=== PATIENT | female | born 1995 | race Caucasian/White ===

== ENCOUNTER → 2016-11-30 | Outpatient (CLI) | payer OTHER ==
[~2016-11-30] MED LIST: BCPILLS PO; CYCL10TA6 PO; GADAVIST IV PRN; MULT-506 PO; ONDA4TAB46 PO
--- NOTE | 2016-11-30 14:36 | DIAGNOSTIC IMAGING REPORT ---
MRI OF THE BRAIN COMBO ORBITS PROTOCOL CLINICAL HISTORY: Bilateral retinoblastoma. COMPARISON STUDY: CT of the brain dated 08/17/2015. TECHNIQUE: MRI of the brain was performed utilizing various T1 and T2-weighted sequences in the axial, sagittal, and coronal planes. Contrast-enhanced sequences were acquired following the administration of 19.2 cc of Gadavist. Additional high-resolution imaging was performed through the orbits both pre and postcontrast. FINDINGS: Brain parenchyma: There are scattered punctate foci of T2 signal abnormality within the subcortical and periventricular white matter. The brain parenchyma is otherwise normal in appearance. There is no hemorrhage or mass effect. There is no restricted diffusion to suggest acute ischemia. No enhancing mass lesion is identified on the postcontrast images. Scott-white matter differentiation is preserved. No extra-axial fluid collection is seen. The cerebellar tonsils are normal in configuration. The pineal gland is normal in appearance. Ventricles, sulci, and cisterns: Normal in configuration. Pituitary and sella: Unremarkable. Intracranial vasculature: Normal flow voids are maintained at the skull base. Orbits: The bony orbits are grossly intact. There is a bilobed/irregular nodule identified within the posterior right ocular globe. This is located at and just medial to the optic nerve insertion, and was shown to be calcified on the prior CT of the brain. The largest nodular component shows postcontrast enhancement and measures up to 4.4 mm. There is a plaque-like lesion also seen involving the posterior aspect of the left ocular globe, just medial to the optic nerve insertion. The largest nodular component measures up to 5.5 mm and demonstrates postcontrast enhancement. The optic nerves appear symmetric. The extraocular musculature is normal and symmetric. No lesion is seen within the intra or extraconal fat. Sinuses and mastoids: Clear. Calvarium: Unremarkable. Cervical cord: Partially visualized cervical spinal cord is normal in morphology and signal intensity. IMPRESSION: 1. There is no hemorrhage, mass effect, or evidence of acute ischemia. 2. There are lesions seen posteriorly within both ocular globes as detailed above. These demonstrate postcontrast enhancement, and the lesion of the right shows clear calcification on the recent CT of the brain. These are consistent with the reported clinical history of bilateral retinoblastoma. 3. The pineal gland is normal in appearance. 4. There are scattered punctate foci of T2 signal abnormality within the subcortical and periventricular white matter. This is of indeterminant clinical significance, if any. Electronically signed by: Martell Ghosh M.D. 11/30/2016 2:35 PM Dictated Date/Time: 11/30/2016 2:07 PM
== END | disposition home or self-care (01) ==
LOC: C.MRI 11:45
PROVIDERS: ATTEND Ophthalmology
DX: Z85.840 Personal history of malignant neoplasm of eye (principal); R90.82 White matter disease, unspecified

== ENCOUNTER → 2017-02-03 | Outpatient (CLI) | payer OTHER ==
[~2017-02-03] MED LIST changes: -GADAVIST IV PRN
--- NOTE | 2017-02-03 12:29 | DIAGNOSTIC IMAGING REPORT ---
MRV HEAD WITHOUT CONTRAST CLINICAL HISTORY: Headaches, papilledema. History of retinoblastoma. Left thigh pain. COMPARISON STUDY: MRI dated 11/30/2016 FINDINGS: The major dural venous sinuses appear patent. IMPRESSION: No evidence of dural venous sinus thrombosis. Electronically signed by: Jace Appiah M.D. 02/03/2017 12:28 PM Dictated Date/Time: 02/03/2017 12:26 PM
[2017-02-03 17:01] LABS: BASO % 0.4 %; BASO ABS # 0.07 K/uL (0-0.2); COMPLETE YES; EOS % 3.3 %; HEMATOCRIT 38.5 % (37-47); IG% 0.6 %; LYMPH % 21.4 %; MEAN CORPUSCULAR HEMOGLOBIN 23.8 pg (25-34); MEAN CORPUSCULAR HGB CONC 31.7 g/dl (32-36); MEAN PLATELET VOLUME 10.8 fL (7.4-10.4); NEUT % 66.3 %; PLATELET COUNT 343 K/uL (130-400); RED BLOOD COUNT 5.13 M/uL (4.2-5.4); WHITE BLOOD COUNT 17.73 K/uL (4.8-10.8)
[2017-02-03 17:14] LABS: ALT/SGPT 16 U/L (12-78); AST/SGOT 8 U/L (15-37); BLOOD UREA NITROGEN 16 mg/dl (7-18); BUN/CREATININE RATIO 21.3 (10-20); CALCIUM 9.2 mg/dl (8.5-10.1); CARBON DIOXIDE 26 mmol/L (21-32); CHLORIDE 108 mmol/L (98-107); CREATININE 0.75 mg/dl (0.60-1.20); GLUCOSE 99 mg/dl (70-99); POTASSIUM 3.9 mmol/L (3.5-5.1); SODIUM 141 mmol/L (136-145)
[2017-02-03 17:25] LABS: ALB/GLOB RATIO 0.9 (0.9-2); ALKALINE PHOSPHATASE 120 U/L (45-117)
[2017-02-03 18:18] LABS: LYME DISEASE AB IGM NEG (NEG)
[2017-02-03 18:20] LABS: LYME DISEASE AB IGG NEG (NEG)
== END | disposition home or self-care (01) ==
LOC: C.MRIBC 11:47
PROVIDERS: ATTEND Physician Assistant
DX: H47.10 Unspecified papilledema (principal); R51 Headache

== ENCOUNTER 2017-03-21 07:09 | Day surgery (SDC) | payer OTHER ==
[~2017-03-21] VITALS: Ht 167.6 cm; Wt 159.0 kg
[2017-03-21 08:09] VITALS: BP 124/68; PULSE 85; TEMP 36.9; O2SAT 98; Ht 167.6 cm; Wt 159.0 kg
[2017-03-21 09:49] VITALS: BP 117/67; PULSE 73; TEMP 36.7; O2SAT 99
--- NOTE | 2017-03-21 09:49 | Discharge Instructions ---
Discharge Instructions Procedure Procedure Date: Mar 21, 2017. Reason for visit: Papilledema W/Opening Pressure. Discharge Discharge Date: Mar 21, 2017. Discharge Diagnosis: papilledema Instructions Activity Recommendations: No limitations Return to School/Work: no limitations Recommended Home Diet: Resume Previous Diet Allergies Coded Allergies: No Known Allergies (Verified , 03/21/17) Alison Montes Recommendations: Call your doctor if: * Temperature above 101 degrees * Pain not relieved by pain medicine ordered * There is increased drainage or redness from any incision * You have any unanswered questions or concerns. Your Doctors Instructions noted above were prepared by provider Jace Appiah. Patient Signature Section: Patient Instructions Signature Page Bg [place] Patient (or Guardian) Signature/Date: I have read and understand the instructions given to me by my caregivers. Caregiver/RN/Doctor Signature/Date: The above-named patient and/or guardian has received patient instructions on this date. + Original Patient Signature Page (only) stays with chart. Please make copy for patient.
[2017-03-21 10:03] VITALS: BP 118/62; PULSE 75; O2SAT 99
--- NOTE | 2017-03-21 10:15 | DIAGNOSTIC IMAGING REPORT ---
FLUOROSCOPICALLY GUIDED DIAGNOSTIC LUMBAR PUNCTURE (UNSUCCESSFUL) CLINICAL HISTORY: Papilledema COMPARISON STUDY: No previous studies for comparison. FINDINGS: A timeout was performed. The risks of the procedure were explained the patient and informed consent was obtained. The patient was prepped and draped in sterile fashion. 2.8 minutes of fluoroscopic time was utilized. 33 fluoroscopic spot images were acquired. Initial attempt was performed at the L5-S1 level utilizing a 6 inch 20-gauge spinal needle. The needle was too short to reach the thecal sac. Additional attempts utilizing a 10 inch 20-gauge spinal needle were performed. Due to the patient's large body habitus, there was excessive needle bending, and the needle could not be advanced into the thecal sac. Attempts were also made to L4-5 and L3-4 levels. IMPRESSION: Despite multiple attempts, due to the patient's large body habitus, the attempted lumbar puncture was unsuccessful. Electronically signed by: Jace Appiah M.D. 03/21/2017 10:14 AM Dictated Date/Time: 03/21/2017 10:06 AM
== END 2017-03-21 10:09 | disposition home or self-care (01) ==
LOC: C.ACU 07:09
PROVIDERS: ATTEND Psychiatry & Neurology Neurology
DX: H47.10 Unspecified papilledema (principal)

== ENCOUNTER → 2017-04-22 | Outpatient (CLI) | payer OTHER ==
[~2017-04-22] MED LIST changes: -ONDA4TAB46 PO
[2017-04-22 13:41] LABS: BASO % 0.6 %; BASO ABS # 0.08 K/uL (0-0.2); COMPLETE YES; EOS % 3.3 %; HEMATOCRIT 35.9 % (37-47); IG% 0.5 %; LYMPH % 21.7 %; LYMPH ABS # 3.14 K/uL (1.2-3.4); MEAN CELL VOLUME 77.4 fL (80-100); MEAN CORPUSCULAR HEMOGLOBIN 23.3 pg (25-34); MEAN CORPUSCULAR HGB CONC 30.1 g/dl (32-36); MEAN PLATELET VOLUME 10.5 fL (7.4-10.4); MONO % 7.7 %; NEUT % 66.2 %; PLATELET COUNT 329 K/uL (130-400); RED BLOOD COUNT 4.64 M/uL (4.2-5.4); WHITE BLOOD COUNT 14.44 K/uL (4.8-10.8)
== END | disposition home or self-care (01) ==
LOC: C.LABBC 10:40
PROVIDERS: ATTEND Physician Assistant
DX: R51 Headache (principal)

== ENCOUNTER → 2017-05-04 | Outpatient (CLI) | payer OTHER ==
[2017-05-04 13:21] LABS: BASO % 0.5 %; BASO ABS # 0.08 K/uL (0-0.2); COMPLETE YES; EOS % 3.1 %; HEMATOCRIT 35.3 % (37-47); IG% 0.5 %; LYMPH ABS # 3.08 K/uL (1.2-3.4); MEAN CELL VOLUME 76.1 fL (80-100); MEAN CORPUSCULAR HEMOGLOBIN 23.3 pg (25-34); MEAN CORPUSCULAR HGB CONC 30.6 g/dl (32-36); MEAN PLATELET VOLUME 10.5 fL (7.4-10.4); MONO % 7.7 %; NEUT % 67.2 %; PLATELET COUNT 291 K/uL (130-400); RED BLOOD COUNT 4.64 M/uL (4.2-5.4); WHITE BLOOD COUNT 14.64 K/uL (4.8-10.8)
[2017-05-04 13:56] LABS: ALT/SGPT 14 U/L (12-78); AST/SGOT 6 U/L (15-37); BLOOD UREA NITROGEN 9 mg/dl (7-18); BUN/CREATININE RATIO 15.2 (10-20); CALCIUM 8.6 mg/dl (8.5-10.1); CARBON DIOXIDE 26 mmol/L (21-32); CHLORIDE 107 mmol/L (98-107); CREATININE 0.61 mg/dl (0.60-1.20); GLUCOSE 87 mg/dl (70-99); POTASSIUM 3.5 mmol/L (3.5-5.1); SODIUM 139 mmol/L (136-145)
[2017-05-04 14:05] LABS: ALB/GLOB RATIO 0.9 (0.9-2); ALKALINE PHOSPHATASE 109 U/L (45-117); C-REACTIVE PROTEIN 3.76 mg/dl (0-0.29); FERRITIN 38.5 ng/ml (8.0-388.0); TOTAL IRON BINDING CAPACITY 313 mcg/dl (250-450)
== END | disposition home or self-care (01) ==
LOC: C.LAB1850 12:12
PROVIDERS: ATTEND Internal Medicine
DX: D64.9 Anemia, unspecified (principal); S33.9XXA Sprain of unspecified parts of lumbar spine and pelvis, initial encounter; X58.XXXA Exposure to other specified factors, initial encounter; D72.829 Elevated white blood cell count, unspecified

== ENCOUNTER → 2017-05-26 | Outpatient (CLI) | payer OTHER | END | disposition home or self-care (01) | LOC: C.LAB 14:54 | PROVIDERS: ATTEND Internal Medicine | DX: D64.9 Anemia, unspecified (principal) ==

== ENCOUNTER 2023-04-30 19:49 | Inpatient (IN) ==
--- OUTSIDE RECORDS SUMMARY | 2023-04-30 19:55 | External Medical Summary | Summary of Care ---
Author Name Unknown Organization [facility] Address [address] [place] [address] Phone [phone] Care Team Providers Care Assembler Engine Name Role Phone Breanna Cardenas MD [facility] Care Provider Encounter Details Date Type Department Care Team Description 12/06/2022 Orders Only Outcomes Research Department [address], [place] [id number] Angie Almeida CHRA My[facility] Research Other*[id number] Allergies No known active allergiesdocumented as of this encounter (statuses as of 12/06/2022) Medications Medication Sig Dispensed Refills Start Date End Date Status INTROVALE 0.15-0.03 MG per tablet One daily as directed 0 12/04/2014 Active Multiple Vitamin (MULTI VITAMIN DAILY) TABS One daily 0 Active loratadine (CLARITIN) 10 MG Tablet One daily 0 Active VENTOLIN HFA 108 (90 BASE) MCG/ACT inhaler Every 4 hours as needed for chest tightness, wheezing, coughing or SOB 0 02/27/2015 Active [place]-3 Fatty Acids (FISH OIL) 300 MG CAPS 1 pill 3x/day 0 Active buPROPion extended release, SR, (WELLBUTRIN SR) 150 MG TB12 Take 1 Tab by mouth 2 times a day. 60 Tab 1 07/05/2016 Active documented as of this encounter (statuses as of 12/06/2022) Active Problems Problem Noted Date Body mass index (BMI) of 60.0-69.9 in ad ult 12/31/2015 [facility] OTHER*[id number] 5 Prediabetes 03/12/2015 Dyslipidemia, goal to be determined 12/2014 Retinoblastoma of left eye 03/08/2014 Chronic otitis externa 04/29/2008 Otitis media Impacted cerumen Allergic rhinitis Other diseases of respiratory system, no t elsewhere classified documented as of this encounter (statuses as of 12/06/2022) Resolved Problems Problem Noted Date Resolved Date Other acute otitis externa 04/29 documented as of this encounter (statuses as of 12/06/2022) Immunizations No known immunizationsdocumented as of this encounter Social History Tobacco Use Types Packs/Day Years Used Date Smoking Tobacco: Former Smokeless Tobacco: Never Alcohol Use Standard Drinks/Week Comments No 0 (1 standard drink = 0.6 oz pur e alcohol) Sex Assigned at Date Recorded Not on file documented as of this encounter Plan of Treatment Scheduled Orders Name Type Priority Associated Diagnoses Orde r Schedule MYCODE INITIAL ADULT Lab Routine My[facility] Research Other*[id number] Expected: 12/06/2022 (Approximate), Expires: 12/26/2023 Health Maintenance Due Date Last Done Comments Hepatitis B (1 of 3 - 3-dose series) 1994 COVID-19 Vaccine (#1) 03/17/1995 Depression Screening, Annual for Pts 12 and Over 2006 HIV Screening 2009 Hepatitis C Screening 2012 DTaP,Tdap,and Td Vaccines (1 - Tdap) 2013 Pap Smear 09/16/2015 HbA1c 12/30/2016 12/31/2015 Influenza Vaccine (FLU shot) (Season Ended) 2023 GARDASIL-HPV IMMUNIZATION SERIES Aged Out No longer eligible based on patient's age to complete this topic MENINGOCOCCAL (MENACTRA/MENVEO) Aged Out No longer eligible based on patient's age to complete this topic Pneumococcal Vaccine: Pediat rics (0 to 5 Years) and At-Risk Patients (6 to 64 Years) Aged Out No longer eligi ble based on patient's age to complete this topic documented as of this encounter Medical Devices Not on filedocumented as of this encounter Visit Diagnoses Diagnosis My[facility] Research Other*[id number] documented in this encounter Care Teams Assembler Engine Relationship Specialty Start Date End Date Breanna Cardenas MD PCP - General Internal Medicine 10/02/14 documented as of this encounter
[2023-04-30] MEDS ORDERED: SODIUM CHLORIDE 0.9% 1,000 ML IV SCH (20:00)
--- NOTE | 2023-04-30 20:41 | Emergency Department Note ---
Impression & Plan Symptomatic anemia, Anemia requiring transfusions, Leukocytosis, Lightheadedness ED Provider Note HISTORY OF PRESENT ILLNESS: Patient is a 27-year-old female presenting with weakness and palpitations. Patient reports that since this morning she has been having episodes in which she feels very weak and feels like her heart is racing. Reports his symptoms last for few minutes at a time and then go away on their own. Reports she had an episode this morning when she woke up. She then was feeling okay and went to work and then had another episode. Denies any DVT or PE history. Denies any OCP use. Denies any changes in medications recently. Denies any recent fall or head injuries or chiropractic manipulation of her neck. She states that with the episodes she occasionally gets short of breath. Denies any nausea or vomiting or diarrhea. ROS: as above PHYSICAL EXAM: Constitutional: Patient appears in no acute distress. HENT: Head: Normocephalic and atraumatic. Eyes: EOMI, PERRL Mouth/Throat: Mucous membranes moist. Neck: Trachea midline. Neck supple. Cardiovascular: Tachycardic with regular rhythm. No murmurs, rubs or gallops. Intact distal pulses. Pulmonary/Chest: No respiratory distress. Breath sounds clear and equal bilaterally. No wheezes or rales. Abdominal: Abdomen soft, no tenderness, rebound or guarding. Musculoskeletal: No edema, tenderness or deformity noted. Skin: Warm and dry. No rash, erythema, pallor or cyanosis Psychiatric: Appropriate mood and affect for situation. Neurological: Alert and keenly responsive. CN II-XII grossly intact, moving all extremities equally and fully. MDM: - Vitals signs showed tachycardia. - History obtained via patient. Patient presents with weakness and palpitations. Patient reports that since this morning she denies being episodes in which she is feels very weak and like her heart is racing. Reports symptoms last for few minutes and then go away on their own. Denies any chest pain but does report shortness of breath with the episode. Denies recent falls or chiropractic manipulation of her neck. - Chronic conditions affecting care: None - Differential diagnoses include, but are not limited to: ACS; PE; dehydration; pneumonia; anemia; electrolyte abnormality - Order placed for continuous cardiac monitoring. At this time, monitor showed rate of 101 bpm with normal sinus rhythm, per my interpretation. - External medical records reviewed. Patient's laboratory work-up from 02/21/2023 was reviewed. She has been anemic in the past with a hemoglobin of 8.1 at that visit. - EKG reviewed by myself showed normal sinus rhythm. Rate tachycardic at 101 bpm. QTc 446. No acute ischemic changes. - Laboratory workup interpreted by myself showed leukocytosis (WBC 18.05) with left shift; anemia (Hgb 5.9); negative dimer; normal troponin; elevated BUN (32); normal creatinine; normal TSH - CXR negative for pneumonia, per my interpretation - Respiratory biofire negative - Discussed blood transfusion with patient. She was consented. She denies recent heavy menstrual period or melena. - 2 units PRBCs ordered. - Patient's symptoms likely secondary to her profound anemia. - Discussion was had with manager critical care unit about patient's case and need for admission - Hospitalist consulted for admission - Patient admitted to [facility] for further evaluation and management. I provided 34 minutes of critical care time to this patient's care outside of billable procedures. ASSESSMENT AND PLAN: Diagnosis: symptomatic anemia; anemia requiring transfusion; leukocytosis; lightheadedness Plan: admit Past Med/Surg History Medical History Migraines Morbid obesity with BMI of 60.0-69.9, adult Surgical History Hx of tonsillectomy Social History Smoking Status: Current every day smoker Tobacco Type: Cigarettes and E-cigarettes / Vaping Preferred Language: [place] marital status: Single Current Living Situation: Significant Other current occupational status: unemployed Feels Safe at Home: Yes Allergies Allergies Allergy/AdvReac Type Severity Reaction Status Date / Time No Known Allergies AdvReac Unknown Verified 03/21/17 08:04 Home Meds Home Medications Medication Instructions Recorded Confirmed Control Pills 1 tab PO DAILY #0 tabs 08/17/15 CYCLOBENZAPRINE HCL (FLEXERIL) 1 tab PO HS PRN Muscle Spasms 30 08/17/15 days #30 tabs Multivitamin 1 tab PO DAILY #0 tabs 08/17/15 Previous Rx's Medication Instructions Recorded amoxicillin 875 mg-potassium 1 tab PO BID #20 tabs 03/08/22 clavulanate 125 mg tablet oxycodone 5 mg tablet 5 mg PO Q4H PRN pain #15 tabs 03/08/22 Results & Data (ED) Vital Signs Vital Signs - 24 hr 04/30/23 19:54 04/30/23 20:18 04/30/23 20:19 Temperature 36.8 C Temperature Source Temporal Artery Scan Pulse Rate 116 H Pulse Rate [Apical] 101 H Pulse Rhythm Regular Pulse Rhythm [Apical] Regular Pulse Strength [Apical] Respiratory Rate 18 12 12 Respiratory Effort / Characteristics Non-Labored Spontaneous Non-Labored Spontaneous Respiratory Depth Normal Normal Respiratory Pattern Regular Regular Blood Pressure 175/84 H Blood Pressure [Left Arm] 116/55 L Blood Pressure Mean 114 Blood Pressure Mean [Left Arm] 75 Blood Pressure Position [Left Arm] Semi-fowlers Pulse Oximetry 98 98 99 Oxygen Delivery Method Room Air Room Air Room Air Sepsis Recent Fever Within 48 Hours No Sepsis New/Unexplained Change in Mental Status No Sepsis Action Taken by Nursing No Action Required 04/30/23 22:01 Temperature Temperature Source Pulse Rate Pulse Rate [Apical] 85 Pulse Rhythm Pulse Rhythm [Apical] Regular Pulse Strength [Apical] Normal Respiratory Rate 18 Respiratory Effort / Characteristics Non-Labored Spontaneous Respiratory Depth Normal Respiratory Pattern Blood Pressure Blood Pressure [Left Arm] 128/63 Blood Pressure Mean Blood Pressure Mean [Left Arm] 84 Blood Pressure Position [Left Arm] Pulse Oximetry 100 Oxygen Delivery Method Room Air Sepsis Recent Fever Within 48 Hours Sepsis New/Unexplained Change in Mental Status Sepsis Action Taken by Nursing Laboratory Data 04/30/23 20:28 04/30/23 20:28 Lab Results 04/30/23 04/30/23 Range/Units 20:28 21:34 WBC 18.05 H (4.8-10.8) K/ul RBC 3.25 L (4.20-5.40) M/uL Hgb 5.9 L* (12.0-16.0) g/dl Hct 20.9 L* (37.0-47.0) % MCV 64.3 L (80.0-100.0) fL MCH 18.2 L (25.0-34.0) pg MCHC 28.2 L (32.0-36.0) g/dL RDW Std Deviation 41.0 (36.4-46.3) fL RDW Coeff of Jerome 18.0 H (11.5-14.5) % Plt Count 319 (130-400) K/uL MPV 10.7 (9.4-12.4) fL Immature Gran % (Auto) 0.7 % Neut % (Auto) 83.4 % Lymph % (Auto) 10.1 % [place] % (Auto) 4.9 % Eos % (Auto) 0.3 % Baso % (Auto) 0.6 % Neut # (Auto) 15.06 H (1.40-6.50) K/uL Lymph # (Auto) 1.82 (1.20-3.40) K/uL [place] # (Auto) 0.88 H (0.11-0.59) K/uL Eos # (Auto) 0.06 (0.00-0.50) K/uL Baso # (Auto) 0.11 (0.00-0.20) K/uL Immature Gran # (Auto) 0.12 (0.01-0.20) K/uL Hypersegmented Neuts 1+ Hypochromasia Present Microcytosis Present Tear Drop Cells 1+ Ovalocytes 1+ D-Dimer 210 (0-500) ug/L FEU Sodium 137 (136-145) mmol/L Potassium 4.0 (3.5-5.1) mmol/L Chloride 106 (98-107) mmol/L Carbon Dioxide 25 (21-32) mmol/L Anion Gap 6 (3-11) BUN 32 H (6-23) mg/dl Creatinine 0.65 (0.6-1.2) mg/dl Est Cr Clr Drug Dosing 193.2 ml/min Est GFR ( Amer) 140.0 ml/min Est GFR (Non-Af Amer) 120.8 ml/min BUN/Creatinine Ratio 49.2 H (10-20) Glucose 144 H (70-99(Fasting)) mg/dl Lactate 1.3 (0.4-2.0) mmol/L Calcium 8.9 (8.6-10.3) mg/dl Magnesium 1.8 (1.7-2.4) mg/dl Total Bilirubin 0.2 (0.2-1.0) mg/dl AST 7 L (13-39) U/L ALT 8 (7-52) U/L Alkaline Phosphatase 50 (34-104) U/L Troponin I High Sens 5.2 (0-14) pg/ml Total Protein 6.2 (6.0-8.3) gm/dl Albumin 3.8 (3.4-5.0) gm/dl Globulin 2.4 L (2.5-4.0) gm/dl Albumin/Globulin Ratio 1.6 (0.9-2) TSH 0.833 (0.300-4.500) uIu/ml Adenovirus (PCR) Not Detected (NotDetected) B. pertussis DNA (PCR) Not Detected (NotDetected) B.parapertussis DNA PCR Not Detected (NotDetected) C. pneumoniae DNA (PCR) Not Detected (NotDetected) Coronavirus OC43 (PCR) Not Detected (NotDetected) Coronavirus HKU1 (PCR) Not Detected (NotDetected) Coronavirus 229E (PCR) Not Detected (NotDetected) SARS-CoV-2 (PCR) Not Detected (NotDetected) Coronavirus NL63 (PCR) Not Detected (NotDetected) Human Metapneumovir PCR Not Detected (NotDetected) Influenza Type A (PCR) Not Detected (NotDetected) Influenza Type B (PCR) Not Detected (NotDetected) M. pneumoniae (PCR) Not Detected (NotDetected) Parainfluenza 1 (PCR) Not Detected (NotDetected) Parainfluenza 2 (PCR) Not Detected (NotDetected) Parainfluenza 3 (PCR) Not Detected (NotDetected) Parainfluenza 4 (PCR) Not Detected (NotDetected) RSV (PCR) Not Detected (NotDetected) Entero/Rhino (PCR) Not Detected (NotDetected) Blood Type A Positive Antibody Screen NEGATIVE Crossmatch See Detail Administered Medications Discontinued Medications Sodium Chloride (Nss) 1,000 mls @ 999 mls/hr IV .Q1H1M ARNOL Stop: 04/30/23 21:00 Last Infusion: 04/30/23 21:39 Dose: Infused Documented By: Admin: 04/30/23 20:44 Dose: 999 mls/hr Documented By: UBALDO Discharge Plan Visit Data Chief Complaint: Weakness Stated Complaint: WEAKNESS, TACHYCARDIA, HEARING LOSS ED Provider: Nimco Leal Discharge Problem: Symptomatic anemia, Anemia requiring transfusions, Leukocytosis, Lightheadedness Forms Stand Alone Forms: [facility] Prescriptions Prescriptions: No Action Control Pills tablet 1 tab PO DAILY Qty: 0 Multivitamin tablet 1 tab PO DAILY Qty: 0 CYCLOBENZAPRINE HCL (FLEXERIL) 10 MG tablet 1 tab PO HS PRN (Reason: Muscle Spasms) 30 Days Qty: 30 amoxicillin-pot clavulanate 875-125 mg tablet 1 tab PO BID Qty: 20 0RF oxycodone 5 mg tablet 5 mg PO Q4H PRN (Reason: pain) Qty: 15 0RF Referrals Referrals: Marry Vasquez [Outside Practitioners] -
[2023-04-30 21:03] LABS: Albumin Globulin Ratio 1.6 (0.9-2); Albumin Level 3.8 gm/dl (3.4-5.0); BUN Creatinine Ratio 49.2 (10-20); Bilirubin,Total 0.2 mg/dl (0.2-1.0); Calcium 8.9 mg/dl (8.6-10.3); Creatinine Clr Calc Pharmacy 193.2 ml/min; Est GFR (Non-African American) 120.8 ml/min; Globulin 2.4 gm/dl (2.5-4.0); Magnesium 1.8 mg/dl (1.7-2.4); Total Protein 6.2 gm/dl (6.0-8.3)
[2023-04-30 21:07] LABS: Troponin I High Sensitivity 5.2 pg/ml (0-14)
[2023-04-30 21:12] LABS: D Dimer 210 ug/L FEU (0-500)
[2023-04-30 21:17] LABS: Thyroid Stimulating Hormone 0.833 uIu/ml (0.300-4.500)
[2023-04-30 21:20] LABS: Hematocrit (blood only) 20.9 % (37.0-47.0); Hemoglobin 5.9 g/dl (12.0-16.0); Mean Corpuscular Hemoglobin 18.2 pg (25.0-34.0); Mean Corpuscular Hgb Conc 28.2 g/dL (32.0-36.0); Mean Corpuscular Volume 64.3 fL (80.0-100.0); Mean Platelet Volume 10.7 fL (9.4-12.4); Platelet Count 319 K/uL (130-400); Red Blood Count 3.25 M/uL (4.20-5.40); White Blood Count 18.05 K/ul (4.8-10.8)
[2023-04-30 21:37] LABS: Adenovirus PCR Not Detected (NotDetected); Bordetella parapertussis PCR Not Detected (NotDetected); Bordetella pertussis PCR Not Detected (NotDetected); Chlamydia pneumoniae PCR Not Detected (NotDetected); Coronavirus 229E PCR Not Detected (NotDetected); Coronavirus CoV-2 (COVID19)PCR Not Detected (NotDetected); Coronavirus HKU1 PCR Not Detected (NotDetected); Coronavirus NL63 PCR Not Detected (NotDetected); Coronavirus OC43PCR Not Detected (NotDetected); Human Metapneumovirus PCR Not Detected (NotDetected); Influenza A PCR Not Detected (NotDetected); Influenza B PCR Not Detected (NotDetected); Mycoplasma pneumoniae PCR Not Detected (NotDetected); Parainfluenza Virus 1 PCR Not Detected (NotDetected); Parainfluenza Virus 2 PCR Not Detected (NotDetected); Parainfluenza Virus 3 PCR Not Detected (NotDetected); Parainfluenza Virus 4 PCR Not Detected (NotDetected); Respiratory Syncytial VirusPCR Not Detected (NotDetected); Rhinovirus/Enterovirus PCR Not Detected (NotDetected)
[2023-04-30] MEDS ORDERED: SODIUM CHLORIDE 0.9% 250 ML IV PRN (21:43)
[2023-04-30 21:46] LABS: Basophils # (auto) 0.11 K/uL (0.00-0.20); Basophils % (auto) 0.6 %; Eosinophils # (auto) 0.06 K/uL (0.00-0.50); Eosinophils % (auto) 0.3 %; Hypersegmented Neutrophils 1+; Hypochromasia Present; Immature Granulocytes # (auto) 0.12 K/uL (0.01-0.20); Immature Granulocytes % (auto) 0.7 %; Lymphocytes # (auto) 1.82 K/uL (1.20-3.40); Lymphocytes % (auto) 10.1 %; Microcytosis Present; Monocytes # (auto) 0.88 K/uL (0.11-0.59); Monocytes % (auto) 4.9 %; Neutrophils # (auto) 15.06 K/uL (1.40-6.50); Neutrophils % (auto) 83.4 %; Ovalocytes 1+; Tear Drop Cells 1+
[2023-04-30 23:08] LABS: Appearance Urine Clear (Clear); Bacteria Urine Automated Negative (Negative); Bilirubin Urine Negative (Negative); Blood Urine Negative (Negative); Color Urine Yellow; Epithelial Cell Urine Auto >30 /lpf (0-5); Glucose Urine UA Negative (Negative); Ketones Urine Negative (Negative); Leukocyte Esterase Urine 2+ (Negative); Nitrite Urine Negative (Negative); Protein Urine Negative (Negative); RBC Urine Automated 0-4 /hpf (0-4); Urobilinogen Urine Negative (Negative)
--- NOTE | 2023-04-30 23:29 | History & Physical Report ---
Date of Service April 30, 2023 Assessment & Plan (1) Symptomatic anemia: (2) Anemia requiring transfusions: (3) Morbid obesity with BMI of 60.0-69.9, adult: (4) Lightheadedness: (5) Palpitations: Plan Symptomatic anemia requiring transfusion- Hemoglobin 5.9 on admission Patient to receive 2 units PRBCs ordered by the ED Recheck laboratories in a.m. No history of GI or blood loss She reports that she has normal heavy periods Order CT scan of abdomen the pelvis to assess for possible retroperitoneal bleed She has rare use of NSAIDs No history of malabsorption syndrome, with history of morbid obesity Admit to monitored bed BioFire testing negative Order peripheral smear depending upon results of above testing, may have need for consult for GI or hematology History of Present Illness Chief Complaint: The patient presents to the emergency department with what she feels is acute onset of generalized weakness, lightheadedness, dizziness, fatigue and palpitations that began this morning upon awakening Primary Care Provider: NO PCP The patient is a 27-year-old female with a past medical history including migraines, morbid obesity with BMI of 56. She reports that she has been able to do her routine activities, including working as a teacher, until this morning when she developed severe fatigue, lightheadedness, dizziness and palpitations. With laboratory workup, she was found to be hemoglobin of 5.9. She has no acute previous history of anemia or family history. She denies any blood loss via stool or urine. She feels that her symptoms developed acutely this morning upon awakening. She reports no change in her usually heavy menstrual periods Allergies Allergy/AdvReac Type Severity Reaction Status Date / Time No Known Allergies AdvReac Unknown Verified 04/30/23 23:09 Home Medications Medication Instructions Recorded Confirmed Type cholecalciferol (vitamin D3) 50 50 mcg PO DAILY 04/30/23 04/30/23 History mcg (2,000 unit) tablet Past Med/Surg History Medical History (Updated 05/01/23 @ 04:22 by Iglesia Tang MD) Morbid obesity with BMI of 60.0-69.9, adult Migraines Surgical History Hx of tonsillectomy Social History Smoking Status: Current every day smoker Tobacco Type: Cigarettes and E-cigarettes / Vaping Second Hand Exposure: No; Do You Dip or Chew Tobacco: No; Hx Alcohol Use: No Hx Substance Use: No Preferred Language: Latvian Communication Ability: Effective Mule Operator Required: No Beliefs That Will Affect Care: None marital status: Single Current Living Situation: Significant Other current occupational status: unemployed Feels Safe at Home: Yes Assistive Devices: None Review of Systems Review of Systems: The patient denies chest pain, cough, lower extremity swelling, sore throat, fevers, chills, sweats, nausea, vomiting, diarrhea , constipation, abdominal pain, pelvic pain, blood in urine or stool, dysuria, urinary frequency or urgency, lightheadedness, dizziness, headache, memory loss, loss of consciousness, rash, abnormal bruising or bleeding, focal weakness, numbness or tingling in arms or legs, generalized arthralgias or myalgias, back or neck pain, or night sweats. The review of systems is otherwise negative other than for that already noted above, and at least 10 systems have been reviewed. Physical Exam Physical Exam: The patient is awake, alert and oriented 3, looks very fatigued, normocephalic and atraumatic, lying in bed and in no acute distress. HEENT--PERRL, EOMI, mucous membranes and oropharynx normal. Neck--supple. No JVD. No bruits. Thyroid normal, trachea midline, no adenopathy. Heart--normal S1 and S2. No murmurs, rubs or gallops. Lungs--clear bilaterally, no respiratory distress, no accessory muscle use. Abdomen--normal bowel sounds and soft. Nontender. Nondistended. Morbidly obese Extremities--no cyanosis or clubbing. No edema. Dermatologic--normal skin turgor, normal color, no abnormal lymph nodes, no rash. Neurologic--cranial nerves II through XII grossly intact. Rheumatologic--normal range of motion. Psychiatric--normal affect. Results & Data Results & Data Vital Signs (Past 12 Hours) Vital Signs Temp Pulse Pulse Resp BP BP Pulse Ox 04/30/23 23:25 36.8 C 84 19 131/68 99 04/30/23 23:10 36.7 C 85 18 134/70 100 04/30/23 23:00 90 14 134/70 99 04/30/23 22:30 84 15 134/70 100 04/30/23 22:01 85 18 128/63 100 04/30/23 22:00 83 11 L 128/63 100 04/30/23 21:30 93 H 25 H 133/76 99 04/30/23 21:00 88 22 124/70 100 04/30/23 20:30 94 H 0 L 112/71 98 04/30/23 20:28 94 H 1 L 112/71 98 04/30/23 20:19 12 99 04/30/23 20:18 101 H 12 116/55 L 98 04/30/23 19:54 36.8 C 116 H 18 175/84 H 98 O2 Del Method O2 Flow Rate 04/30/23 23:25 0 04/30/23 23:10 0 04/30/23 23:00 04/30/23 22:30 04/30/23 22:01 Room Air 04/30/23 22:00 04/30/23 21:30 04/30/23 21:00 04/30/23 20:30 04/30/23 20:28 04/30/23 20:19 Room Air 04/30/23 20:18 Room Air 04/30/23 19:54 Room Air Laboratory Results Laboratory Results WBC 18.05 K/ul (4.8-10.8) H 04/30/23 20: RBC 3.25 M/uL (4.20-5.40) L 04/30/23 20:28 Hgb 5.9 g/dl (12.0-16.0) L* 04/30/23 20: Hct 20.9 % (37.0-47.0) L* 04/30/23 20: MCV 64.3 fL (80.0-100.0) L 04/30/23 20:28 MCH 18.2 pg (25.0-34.0) L 04/30/23 20: MCHC 28.2 g/dL (32.0-36.0) L 04/30/23 20:28 RDW Std Deviation 41.0 fL (36.4-46.3) 04/30/23 20: RDW Coeff of Jerome 18.0 % (11.5-14.5) H 04/30/23 20: Plt Count 319 K/uL (130-400) 04/30/23 20: MPV 10.7 fL (9.4-12.4) 04/30/23 20: Immature Gran % (Auto) 0.7 % 04/30/23 20: Neut % (Auto) 83.4 % 04/30/23 20: Lymph % (Auto) 10.1 % 04/30/23 20: Eagle % (Auto) 4.9 % 04/30/23 20: Eos % (Auto) 0.3 % 04/30/23 20: Baso % (Auto) 0.6 % 04/30/23 20: Neut # (Auto) 15.06 K/uL (1.40-6.50) H 04/30/23 20: Lymph # (Auto) 1.82 K/uL (1.20-3.40) 04/30/23 20: Eagle # (Auto) 0.88 K/uL (0.11-0.59) H 04/30/23 20: Eos # (Auto) 0.06 K/uL (0.00-0.50) 04/30/23 20: Baso # (Auto) 0.11 K/uL (0.00-0.20) 04/30/23 20: Immature Gran # (Auto) 0.12 K/uL (0.01-0.20) 04/30/23 20: Hypersegmented Neuts 1+ 04/30/23 20: Hypochromasia Present 04/30/23 20: Microcytosis Present 04/30/23 20: Tear Drop Cells 1+ 04/30/23 20: Ovalocytes 1+ 04/30/23 20: D-Dimer 210 ug/L FEU (0-500) 04/30/23 20: Sodium 137 mmol/L (136-145) 04/30/23 20: Potassium 4.0 mmol/L (3.5-5.1) 04/30/23 20: Chloride 106 mmol/L (98-107) 04/30/23 20: Carbon Dioxide 25 mmol/L (21-32) 04/30/23 20: Anion Gap 6 (3-11) 04/30/23 20: BUN 32 mg/dl (6-23) H 04/30/23 20: Creatinine 0.65 mg/dl (0.6-1.2) 04/30/23 20: Est Cr Clr Drug Dosing 193.2 ml/min 04/30/23 20: Est GFR ( Amer) 140.0 ml/min 04/30/23 20: Est GFR (Non-Af Amer) 120.8 ml/min 04/30/23 20: BUN/Creatinine Ratio 49.2 (10-20) H 04/30/23 20: Glucose 144 mg/dl (70-99(Fasting)) H 04/30/23 20: Lactate 1.3 mmol/L (0.4-2.0) 04/30/23: Calcium 8.9 mg/dl (8.6-10.3) 04/30/23: Magnesium 1.8 mg/dl (1.7-2.4) 04/30/23: Total Bilirubin 0.2 mg/dl (0.2-1.0) 04/30/23 20: AST 7 U/L (13-39) L 04/30/23 20: ALT 8 U/L (7-52) 04/30/23 20: Alkaline Phosphatase 50 U/L (34-104) 04/30/23 20: Troponin I High Sens 5.2 pg/ml (0-14) 04/30/23 20: Total Protein 6.2 gm/dl (6.0-8.3) 04/30/23 20: Albumin 3.8 gm/dl (3.4-5.0) 04/30/23 20: Globulin 2.4 gm/dl (2.5-4.0) L 04/30/23 20: Albumin/Globulin Ratio 1.6 (0.9-2) 04/30/23 20: TSH 0.833 uIu/ml (0.300-4.500) 04/30/23 20: Urine Color Yellow 04/30/23 22:49 Urine Appearance Clear (Clear) 04/30/23 22:49 Urine pH 6.0 (4.5-7.5) 04/30/23 22:49 Ur Specific Sparkman 1.020 (1.000-1.030) 04/30/23 22:49 Urine Protein Negative (Negative) 04/30/23 22:49 Urine Glucose (UA) Negative (Negative) 04/30/23 22:49 Urine Ketones Negative (Negative) 04/30/23 22:49 Urine Blood Negative (Negative) 04/30/23 22:49 Urine Nitrite Negative (Negative) 04/30/23 22:49 Urine Bilirubin Negative (Negative) 04/30/23 22:49 Urine Urobilinogen Negative (Negative) 04/30/23 22:49 Ur Leukocyte Esterase 2+ (Negative) H 04/30/23 22:49 Urine WBC (Auto) 10-30 /hpf (0-5) H 04/30/23 22:49 Urine RBC (Auto) 0-4 /hpf (0-4) 04/30/23 22:49 U Hyaline Cast (Auto) 1-5 /lpf (0-5) 04/30/23 22:49 U Epithel Cells (Auto) >30 /lpf (0-5) H 04/30/23 22:49 Urine Bacteria (Auto) Negative (Negative) 04/30/23 22:49 Adenovirus (PCR) Not Detected (NotDetected) 04/30/23 20:28 B. pertussis DNA (PCR) Not Detected (NotDetected) 04/30/23 20:28 B.parapertussis DNA PCR Not Detected (NotDetected) 04/30/23 20:28 C. pneumoniae DNA (PCR) Not Detected (NotDetected) 04/30/23 20:28 Coronavirus OC43 (PCR) Not Detected (NotDetected) 04/30/23 20:28 Coronavirus HKU1 (PCR) Not Detected (NotDetected) 04/30/23 20:28 Coronavirus 229E (PCR) Not Detected (NotDetected) 04/30/23 20:28 SARS-CoV-2 (PCR) Not Detected (NotDetected) 04/30/23 20:28 Coronavirus NL63 (PCR) Not Detected (NotDetected) 04/30/23 20:28 Human Metapneumovir PCR Not Detected (NotDetected) 04/30/23 20:28 Influenza Type A (PCR) Not Detected (NotDetected) 04/30/23 20:28 Influenza Type B (PCR) Not Detected (NotDetected) 04/30/23 20:28 M. pneumoniae (PCR) Not Detected (NotDetected) 04/30/23 20:28 Parainfluenza 1 (PCR) Not Detected (NotDetected) 04/30/23 20:28 Parainfluenza 2 (PCR) Not Detected (NotDetected) 04/30/23 20:28 Parainfluenza 3 (PCR) Not Detected (NotDetected) 04/30/23 20:28 Parainfluenza 4 (PCR) Not Detected (NotDetected) 04/30/23 20:28 RSV (PCR) Not Detected (NotDetected) 04/30/23 20:28 Entero/Rhino (PCR) Not Detected (NotDetected) 04/30/23 20:28 Blood Type A Positive 04/30/23 21:34 Blood Type Recheck A Positive 04/30/23 21:39 Antibody Screen NEGATIVE 04/30/23 21:34 Crossmatch See Detail 04/30/23 21:34 Code Status & VTE Plan Code Status Full code VTE Prophylaxis Plan VTE Prophylaxis will be ordered: Yes PG Care Time/CCT Total # of Minutes Spent Total Time Spent with Patient: Total time spent is greater than 50% in coordination of care (as documented) at patient's floor/unit and/or counseling patient: Coding Level of Care Code 58821 INT INP/OBS CARE 2/55MIN Diagnoses Symptomatic anemia D64.9 Anemia requiring transfusions D64.9 Morbid obesity with BMI of 60.0-69.9, adult E66.01; Z68.44 Lightheadedness R42 Palpitations R00.2
[2023-05-01] MEDS ORDERED: SODIUM CHLORIDE 0.65% NA SOLN 45 ML (OCEAN) ONE ×2 (00:26→00:28)
[2023-05-01] MEDS ORDERED: ACETAMINOPHEN 325 MG TAB PO PRN (00:40)
[2023-05-01] MEDS ORDERED: ONDANSETRON INJ 2 MG/ML 2 ML VIAL IV PRN (00:40)
[2023-05-01] MEDS: NSS + 20MEQ KCL 20 MEQ/1,000 ML BAG IV SCH ×2 (01:12→11:57)
--- NOTE | 2023-05-01 07:57 | Electrocardiogram Report ---
Test Reason : Blood Pressure : / mmHG Vent. Rate : 101 BPM Atrial Rate : 101 BPM P-R Int : 162 ms QRS Dur : 076 ms QT Int : 344 ms P-R-T Axes : 038 008 040 degrees QTc Int : 446 ms Sinus tachycardia Poor R wave progression, consider anterior WA vs. lead placement vs. LVH Abnormal ECG When compared with ECG of 21-FEB-2023 21:20, No significant change was found Confirmed by Robinson Molina ([id number]) on 05/01/2023 7:57:37 AM Referred By: REFERRED SELF Confirmed By:Robinson Molina
--- NOTE | 2023-05-01 08:51 | CT Scan Report ---
CT abd pelvis wo con CLINICAL HISTORY: symptomatic anemia TECHNIQUE: Helical axial images of the abdomen and pelvis were obtained. Automated dose lowering tech niques and/or adjustment according to patient size were utilized for this exam. This exam was perfor med without intravenous contrast. CT DOSE: 1521.46 mGy.cm COMPARISON: None available at the time of this dictation. FINDINGS: Lower chest: Incidental note is made of blood pool less dense in the myocardium which can be seen in anemia. Liver: Unremarkable. No focal lesions are seen. Gallbladder and biliary tree: No calcified gallstones. Normal caliber wall. No intra- or extrahepatic biliary ductal dilation. Pancreas: Unremarkable, no focal lesions. Spleen: Splenomegaly is noted, the spleen measures 17 cm in craniocaudal dimension. Adrenals: Unremarkable. Kidneys and ureters: Nonobstructive stone is seen in the left kidney. Bladder: Unremarkable. Reproductive organs: Unremarkable. Bowel: The appendix is normal. Lymph nodes Retroperitoneal: Unremarkable. Pelvic: Unremarkable. Mesenteric: Unremarkable. Peritoneum: Normal. Vessels: Unremarkable. Abdominal wall: Mild abdominal wall edema is seen, nonspecific. Bones: Unremarkable. IMPRESSION: 1. No acute abnormalities and in particular no evidence of intra-abdominal hemorrhage in this patien t with anemia. Incidental note is made of splenomegaly, nonspecific may be related to extramedullary hematopoiesis i n the setting of anemia. ACT 112: Negative or not required by law. Electronically signed by: Deepak Jo M.D. 05/01/2023 8:48 AM
[2023-05-01] MEDS ORDERED: cefTRIAXone SODIUM 2,000 MG in DEXTROSE 5 % MINI-B 50 ML IV SCH (09:00)
--- NOTE | 2023-05-01 09:32 | XRay Report ---
XR chest 1V portable CLINICAL HISTORY: palpitations TECHNIQUE: Single frontal radiograph of the chest was obtained. Comparison: Comparison is made to chest radiograph 03/23/2023 FINDINGS: No lines and tubes are seen. The cardiomediastinal silhouette is normal. The lungs are clear. No evid ence of pleural effusion or pneumothorax. IMPRESSION: No acute chest disease. ACT 112: Negative or not required by law. Electronically signed by: Deepak Jo M.D. 05/01/2023 9:31 AM
[2023-05-01 12:09] LABS: Hematocrit (blood only) 24.6 % (37.0-47.0); Hemoglobin 7.1 g/dl (12.0-16.0); Mean Corpuscular Hemoglobin 20.2 pg (25.0-34.0); Mean Corpuscular Hgb Conc 28.9 g/dL (32.0-36.0); Mean Corpuscular Volume 70.1 fL (80.0-100.0); Mean Platelet Volume 10.4 fL (9.4-12.4); Platelet Count 301 K/uL (130-400); RDW Coefficient of Variation 20.9 % (11.5-14.5); RDW Standard Deviation 52.3 fL (36.4-46.3); Red Blood Count 3.51 M/uL (4.20-5.40); White Blood Count 13.28 K/ul (4.8-10.8)
[2023-05-01 12:37] LABS: Ferritin 4.5 ng/ml (8-388)
[2023-05-01 12:43] LABS: Folate (Folic Acid),Ser orPlas > 22.30 ng/ml (>5.38)
[2023-05-01 12:44] LABS: Vitamin B12 385 pg/ml (180-914)
--- NOTE | 2023-05-01 12:47 | XCELERA ---
[id number]
[2023-05-01] MEDS ORDERED: SODIUM CHLORIDE 0.9% 250 ML IV PRN (14:56)
[2023-05-01] MEDS ORDERED: ACETAMINOPHEN 500 MG TAB PO ONE (15:31)
[2023-05-01] MEDS ORDERED: IRON SUCROSE 300 MG in SODIUM CHLORIDE 0.9% 250 ML IV ONE (20:12)
--- NOTE | 2023-05-01 20:12 | Hospitalist Progress Note ---
Date of Service May 01, 2023 Assessment & Plan (1) Iron deficiency anemia: Plan: SEVERE Ferritin <5, transferrin sat <5%, etc. 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 b12/folate wnl (2) Symptomatic anemia: Plan: as above echo wnl has tolerated the transfusions well thus far (3) Morbid obesity with BMI of 50.0-59.9, adult: Plan: BMI 55 (4) Menorrhagia: Plan: long-standing issue dating back years manager internet f/u post-discharge for w/u and Rx counseled her that if menorrhagia continues she will have ongoing Fe Def and anemia (5) Leukocytosis: Plan: likely reactive she received rocephin but I am uncertain why no infectious symptoms u/a largely normal (probably poor clean catch) WBC count today normal monitor cxr wnl biofire resp panel negative Plan stop IV fluids can likely d/c home tomorrow if H/H is stable Admission and Anticipated Discharge Date Admission Date: April 30, 2023 Subjective patient feels better in comparison to admission but still quite tired no dyspnea or WILLSON no dizziness reports HEAVY menses chronically for years 4-5 days of heavy menses changing both pads/tampons frequently during that time period denies ANY melena, GI issues, BRBPR was anemic in 2017 and in 02/2023 latter her Hb was ~8 ferritin in 2017 was <40 she has been craving ice water for long time no RLS symptoms Review of Systems Review of Systems: gen - no infectious symptoms CV - no chest pain, no orthopnea, no PND, no edema GI - no abd pain/nausea/emesis/melena/BRBPR/diarrhea Physical Exam Physical Exam: gen - morbidly obese, NAD skin - pallor mouth - MMM heart - RRR, s1, s2, no murmur lungs - CTA b/l abd - soft NT ND BS+ ext - no edema, pulses 2+ b/l Results & Data Results & Data Vital Signs (Past 12 Hours) Vital Signs Temp Pulse Pulse Resp BP BP Pulse Ox 05/01/23 19:51 37.5 C 79 18 153/92 H 96 05/01/23 18:55 36.7 C 79 18 138/87 98 05/01/23 17:55 37.0 C 85 18 137/84 98 05/01/23 17:25 36.8 C 87 16 138/89 96 05/01/23 17:10 37.2 C 79 18 131/85 97 05/01/23 16:54 36.9 C 80 18 132/82 97 05/01/23 16:00 05/01/23 15:40 80 05/01/23 15:38 36.7 C 73 16 149/85 H 99 05/01/23 11:24 78 15 148/68 H 96 05/01/23 10:30 86 0 L 05/01/23 10:00 80 10 L 05/01/23 09:30 80 19 05/01/23 09:00 88 15 05/01/23 08:30 84 3 L O2 Del Method 05/01/23 19:51 05/01/23 18:55 05/01/23 17:55 05/01/23 17:25 05/01/23 17:10 05/01/23 16:54 05/01/23 16:00 Room Air 05/01/23 15:40 05/01/23 15:38 Room Air 05/01/23 11:24 Room Air 05/01/23 10:30 05/01/23 10:00 05/01/23 09:30 05/01/23 09:00 05/01/23 08:30 Laboratory Results Laboratory Results - last 24 hr 04/30/23 04/30/23 04/30/23 20:28 21:34 21:39 WBC 18.05 H RBC 3.25 L Hgb 5.9 L* Hct 20.9 L* MCV 64.3 L MCH 18.2 L MCHC 28.2 L RDW Std Deviation 41.0 RDW Coeff of Jerome 18.0 H Plt Count 319 MPV 10.7 Immature Gran % (Auto) 0.7 Neut % (Auto) 83.4 Lymph % (Auto) 10.1 Davidson % (Auto) 4.9 Eos % (Auto) 0.3 Baso % (Auto) 0.6 Neut # (Auto) 15.06 H Lymph # (Auto) 1.82 Davidson # (Auto) 0.88 H Eos # (Auto) 0.06 Baso # (Auto) 0.11 Immature Gran # (Auto) 0.12 Hypersegmented Neuts 1+ Hypochromasia Present Microcytosis Present Tear Drop Cells 1+ Ovalocytes 1+ D-Dimer 210 Sodium 137 Potassium 4.0 Chloride 106 Carbon Dioxide 25 Anion Gap 6 BUN 32 H Creatinine 0.65 Est Cr Clr Drug Dosing 193.2 Est GFR ( Amer) 140.0 Est GFR (Non-Af Amer) 120.8 BUN/Creatinine Ratio 49.2 H Glucose 144 H Lactate 1.3 Calcium 8.9 Magnesium 1.8 Iron TIBC Unsaturated IBC Transferrin % Sat Ferritin Total Bilirubin 0.2 AST 7 L ALT 8 Alkaline Phosphatase 50 Troponin I High Sens 5.2 Total Protein 6.2 Albumin 3.8 Globulin 2.4 L Albumin/Globulin Ratio 1.6 Vitamin B12 Folate TSH 0.833 Urine Color Urine Appearance Urine pH Ur Specific Eagle Urine Protein Urine Glucose (UA) Urine Ketones Urine Blood Urine Nitrite Urine Bilirubin Urine Urobilinogen Ur Leukocyte Esterase Urine WBC (Auto) Urine RBC (Auto) U Hyaline Cast (Auto) U Epithel Cells (Auto) Urine Bacteria (Auto) Adenovirus (PCR) Not Detected B. pertussis DNA (PCR) Not Detected B.parapertussis DNA PCR Not Detected C. pneumoniae DNA (PCR) Not Detected Coronavirus OC43 (PCR) Not Detected Coronavirus HKU1 (PCR) Not Detected Coronavirus 229E (PCR) Not Detected SARS-CoV-2 (PCR) Not Detected Coronavirus NL63 (PCR) Not Detected Human Metapneumovir PCR Not Detected Influenza Type A (PCR) Not Detected Influenza Type B (PCR) Not Detected M. pneumoniae (PCR) Not Detected Parainfluenza 1 (PCR) Not Detected Parainfluenza 2 (PCR) Not Detected Parainfluenza 3 (PCR) Not Detected Parainfluenza 4 (PCR) Not Detected RSV (PCR) Not Detected Entero/Rhino (PCR) Not Detected Blood Type A Positive Blood Type Recheck A Positive Antibody Screen NEGATIVE Crossmatch See Detail 04/30/23 05/01/23 22:49 11:15 WBC 13.28 H RBC 3.51 L Hgb 7.1 L Hct 24.6 L MCV 70.1 L D MCH 20.2 L MCHC 28.9 L RDW Std Deviation 52.3 H RDW Coeff of Jerome 20.9 H Plt Count 301 MPV 10.4 Immature Gran % (Auto) Neut % (Auto) Lymph % (Auto) Davidson % (Auto) Eos % (Auto) Baso % (Auto) Neut # (Auto) Lymph # (Auto) Davidson # (Auto) Eos # (Auto) Baso # (Auto) Immature Gran # (Auto) Hypersegmented Neuts Hypochromasia Microcytosis Tear Drop Cells Ovalocytes D-Dimer Sodium Potassium Chloride Carbon Dioxide Anion Gap BUN Creatinine Est Cr Clr Drug Dosing Est GFR ( Amer) Est GFR (Non-Af Amer) BUN/Creatinine Ratio Glucose Lactate Calcium Magnesium Iron 14 L TIBC 338 Unsaturated IBC 324 Transferrin % Sat 4 L Ferritin 4.5 L Total Bilirubin AST ALT Alkaline Phosphatase Troponin I High Sens Total Protein Albumin Globulin Albumin/Globulin Ratio Vitamin B12 385 Folate > 22.30 TSH Urine Color Yellow Urine Appearance Clear Urine pH 6.0 Ur Specific Eagle 1.020 Urine Protein Negative Urine Glucose (UA) Negative Urine Ketones Negative Urine Blood Negative Urine Nitrite Negative Urine Bilirubin Negative Urine Urobilinogen Negative Ur Leukocyte Esterase 2+ H Urine WBC (Auto) 10-30 H Urine RBC (Auto) 0-4 U Hyaline Cast (Auto) 1-5 U Epithel Cells (Auto) >30 H Urine Bacteria (Auto) Negative Adenovirus (PCR) B. pertussis DNA (PCR) B.parapertussis DNA PCR C. pneumoniae DNA (PCR) Coronavirus OC43 (PCR) Coronavirus HKU1 (PCR) Coronavirus 229E (PCR) SARS-CoV-2 (PCR) Coronavirus NL63 (PCR) Human Metapneumovir PCR Influenza Type A (PCR) Influenza Type B (PCR) M. pneumoniae (PCR) Parainfluenza 1 (PCR) Parainfluenza 2 (PCR) Parainfluenza 3 (PCR) Parainfluenza 4 (PCR) RSV (PCR) Entero/Rhino (PCR) Blood Type Blood Type Recheck Antibody Screen Crossmatch PG Care Time/CCT Total # of Minutes Spent Total Time Spent with Patient: Total time spent is greater than 50% in coordination of care (as documented) at patient's floor/unit and/or counseling patient: Coding Level of Care Code 15512 SUB INP/OBS CARE 2/35MIN Diagnoses Iron deficiency anemia D50.9 Symptomatic anemia D64.9 Morbid obesity with BMI of 50.0-59.9, adult E66.01; Z68.43 Menorrhagia N92.0 Leukocytosis D72.829
[2023-05-02 07:18] LABS: Hematocrit (blood only) 27.2 % (37.0-47.0); Mean Corpuscular Hemoglobin 21.1 pg (25.0-34.0); Mean Corpuscular Hgb Conc 29.4 g/dL (32.0-36.0); Mean Corpuscular Volume 71.8 fL (80.0-100.0); Mean Platelet Volume 9.8 fL (9.4-12.4); Platelet Count 260 K/uL (130-400); RDW Coefficient of Variation 21.6 % (11.5-14.5); RDW Standard Deviation 55.2 fL (36.4-46.3); Red Blood Count 3.79 M/uL (4.20-5.40)
[2023-05-02 07:30] LABS: Anion Gap 6 (3-11); BUN Creatinine Ratio 26.5 (10-20); Blood Urea Nitrogen 13 mg/dl (6-23); Calcium 8.7 mg/dl (8.6-10.3); Carbon Dioxide 23 mmol/L (21-32); Chloride 110 mmol/L (98-107); Creatinine Clr Calc Pharmacy 256.2 ml/min; Est GFR (African American) > 150.0 ml/min; Est GFR (Non-African American) 132.6 ml/min; Glucose 87 mg/dl (70-99(Fasting)); Potassium 3.7 mmol/L (3.5-5.1); Sodium 139 mmol/L (136-145)
[2023-05-02] MEDS ORDERED: IRON SUCROSE 300 MG in SODIUM CHLORIDE 0.9% 250 ML IV ONE (09:00)
--- NOTE | 2023-05-02 12:03 | Discharge Summary ---
Date of Service date of admission - April 30, 2023 date of discharge - May 02, 2023 Admission HPI Per Admitting Provider The patient is a 27-year-old female with a past medical history including migraines, morbid obesity with BMI of 56. She reports that she has been able to do her routine activities, including working as a teacher, until this morning when she developed severe fatigue, lightheadedness, dizziness and palpitations. With laboratory workup, she was found to be hemoglobin of 5.9. She has no acute previous history of anemia or family history. She denies any blood loss via stool or urine. She feels that her symptoms developed acutely this morning upon awakening. She reports no change in her usually heavy menstrual periods Principal Diagnosis 1. SEVERE iron deficiency anemia 2. Symptomatic anemia 3. Menorrhagia 4. Morbid obesity - BMI 55 5. Mild splenomegaly Discharge Exam gen - morbidly obese, NAD skin - pallor mouth - MMM heart - RRR, s1, s2, no murmur lungs - CTA b/l abd - soft NT ND BS+ ext - no edema, pulses 2+ b/l Discharge Data Allergies Allergy/AdvReac Type Severity Reaction Status Date / Time No Known Allergies AdvReac Unknown Verified 04/30/23 23:09 Procedures Performed 1. PRBCs x 4 units 2. IV venofer x 2 infusions 3. Echocardiogram - EF 60-65%, normal valve function, normal RV function, no pericardial effusion Ordered Studies Chest X-Ray 04/30/23 19:58 XR chest 1V portable CLINICAL HISTORY: palpitations TECHNIQUE: Single frontal radiograph of the chest was obtained. Comparison: Comparison is made to chest radiograph 03/23/2023 FINDINGS: No lines and tubes are seen. The cardiomediastinal silhouette is normal. The lungs are clear. No evidence of pleural effusion or pneumothorax. IMPRESSION: No acute chest disease. ACT 112: Negative or not required by law. Electronically signed by: Deepak Jo M.D. 05/01/2023 9:31 AM Abdomen/Pelvis CT 05/01/23 04:16 CT abd pelvis wo con CLINICAL HISTORY: symptomatic anemia TECHNIQUE: Helical axial images of the abdomen and pelvis were obtained. Automated dose lowering techniques and/or adjustment according to patient size were utilized for this exam. This exam was performed without intravenous contrast. CT DOSE: 1521.46 mGy.cm COMPARISON: None available at the time of this dictation. FINDINGS: Lower chest: Incidental note is made of blood pool less dense in the myocardium which can be seen in anemia. Liver: Unremarkable. No focal lesions are seen. Gallbladder and biliary tree: No calcified gallstones. Normal caliber wall. No intra- or extrahepatic biliary ductal dilation. Pancreas: Unremarkable, no focal lesions. Spleen: Splenomegaly is noted, the spleen measures 17 cm in craniocaudal dimension. Adrenals: Unremarkable. Kidneys and ureters: Nonobstructive stone is seen in the left kidney. Bladder: Unremarkable. Reproductive organs: Unremarkable. Bowel: The appendix is normal. Lymph nodes Retroperitoneal: Unremarkable. Pelvic: Unremarkable. Mesenteric: Unremarkable. Peritoneum: Normal. Vessels: Unremarkable. Abdominal wall: Mild abdominal wall edema is seen, nonspecific. Bones: Unremarkable. IMPRESSION: 1. No acute abnormalities and in particular no evidence of intra-abdominal hemorrhage in this patient with anemia. Incidental note is made of splenomegaly, nonspecific may be related to extramedullary hematopoiesis in the setting of anemia. ACT 112: Negative or not required by law. Electronically signed by: Deepak Jo M.D. 05/01/2023 8:48 AM Hospital Course (1) Iron deficiency anemia: SEVERE Ferritin <5, transferrin sat <5%, etc. Chronic issue dating back several years (ferritin was <50 in 2016, and hemoglobin was 8.1 in February 2023) Blood loss source - likely gynecological as she reports many years of menorrhagia Doubt GI - nothing overt - no melena, BRBPR, or any chronic GI symptoms or GI tract issues Will obtain fecal occult blood to be complete, however If fecal occult is negative could potentially defer on an outpatient GI referral s/p 4 units PRBCs while hospitalized s/p IV venofer 300mg x 2 doses lowest Hb was 5.9, improving to 8 before discharge Of note - vitamin B12 and folate levels were wnl ; TSH was wnl She will need the following at discharge - * fecal occult blood test (stool card with instructions given to patient & order placed in [facility]) * f/u with [facility] [place] alterations supervisor for menorrhagia * repeat CBC in about 1 week to ensure stability of H/H * consideration of additional IV venofer as outpatient - could need 1 to as many as 3 more runs of such (2) Symptomatic anemia: as above in #1 echo wnl cxr wnl no other findings on w/u to explain her fatigue, weakness, shortness of breath, etc (3) Menorrhagia: long-standing issue dating back many years menses last 5 days with all days having heavy bleeding suspect her menorrhagia is the cause of her severe iron deficiency counseled her that if menorrhagia continues she will have ongoing iron deficiency and anemia a follow-up appointment was made with [facility] [place] alterations supervisor to address this issue (4) Splenomegaly: Mild splenomegaly was seen on CT abd/pelvis. Uncertain etiology. Possibly 2nd to her severe anemia. No mention of abnormal appearing liver to suggest it is due to fatty liver disease, etc. Should have a f/u ultrasound of her spleen to ensure normalization. (5) Morbid obesity with BMI of 50.0-59.9, adult: BMI 55 (6) Leukocytosis: Reactive? No infectious symptoms during the stay. u/a largely normal. [employer] respiratory panel was negative. Chest x-ray was wnl. CT abd/pelvis without any source of infection. WBC count normalized without intervention. Total Time Total Time Spent Total Time Spent (In Minutes): 40 Discharge Plan Discharge Items Patient Disposition: Home - Self-Care Reason For Visit: SYMPTOMATIC ANEMIA REQUIRING TRANSFUSION Discharge Diagnosis: 1. SEVERE iron deficiency anemia - 4 units of blood needed; 2 iron infusions given 2. Heavy menstrual bleeding - suspected cause of #1 - nuclear medical technologist follow-up needed 3. Fatigue, weakness, etc - due to #1 above Activity: Per Instructions section Activity Comment: gradually increase activities as tolerated Exercise/Sports: Wait until after follow-up appointment Driving/Machine Use: No limitations Non-emergency contact: Primary Care Provider and Professor Of Communication And Writing Call non-emergency contact if: you have any medication questions and your symptoms worsen Follow-up/Referrals: Arnaldo Angelo CRNP [Nurse Practitioner] - 08/17/23 11:05 am Tran Baires MD, FACOG [Physician] - 05/06/23 1:30 pm (THIS APPOINTMENT WILL BE WITH DR MEADE. PLEASE ARRIVE 20 MINUTES EARLY TO FILL OUT PAPERWORK.) Diet: Regular Ambulatory Orders: Fecal Occult Blood (Routine) Timeframe: 1 Week Location: Determined by Patient Ordered By: Javier Cmtl Attending Provider Instructions: Ms RemyAdam, You were hospitalized due to severe anemia. Your anemia is due to SEVERE iron deficiency. Your vitamin B12 and folate levels were normal. 4 units of blood and 2 iron infusions were given. Discharge hemoglobin (your red cell number) was improved up to 8 (normal is greater than 12 in a female). See handout on iron deficiency. I suspect that your long-standing heavy menses (periods) have caused your iron deficiency Any form of blood loss from your body leads to loss of iron. To be sure that you are not losing blood from your gastrointestinal tract please complete the stool card and either drop it off to your new primary care provider's office OR bring to your gynecology appointment. If it is positive for blood you would then be referred to a gastroenterology doctor. Again I jalen pect, however, your iron deficiency is due to your heavy periods. Because you received 2 runs of IV venofer you do not need to take oral iron at home. You likely will need 1 or more iron infusions as an outpatient in the next few weeks, however. Please talk to your new family doctor about getting additional infusions. Follow-up - see separate section Return to [facility] if - * you have severe dizziness or lightheadedness * you are short of breath * you have extreme fatigue * you see dark/tarry/black stools * you have bright red blood in your stools * any other concerns It was our pleasure to care for you! Pending Studies at Discharge: No Stand-Alone Forms: My [facility], Work/School Release, Smoking Cessation Medications and DC Order Prescriptions: Continued cholecalciferol (vitamin D3) 50 mcg (2,000 unit) Tablet 50 mcg PO DAILY Discharge Orders: Discharge Order (Routine); Ordered 05/02/23 Ordered By: Javier Nuñez/Other Patient Handouts: ED Anemia, Iron-Deficiency (Adult) Admission Data Admit Date/Time: 04/30/23 23:28 Attending Provider: Javier Milton Admit Provider: Iglesia Tang Primary Care Provider: PCP,NO Other Interventions: Discharge Summary Assessment (RN) Last Done: 05/02/23 11:57 Coding Level of Care Code 50553 INP/OBS DISCH >30 MIN Diagnoses Iron deficiency anemia D50.9 Symptomatic anemia D64.9 Menorrhagia N92.0 Splenomegaly R16.1 Morbid obesity with BMI of 50.0-59.9, adult E66.01; Z68.43 Leukocytosis D72.829
== END 2023-05-02 13:16 | disposition home or self-care (01) | DRG 812 ==
LOC: ED 19:49 → SUATTDRO 23:28 → EDINP 23:28 → 2N 05-01 00:41

== ENCOUNTER 2024-02-13 05:16 | Observation (INO) ==
--- OUTSIDE RECORDS SUMMARY | 2024-02-13 05:32 | External Medical Summary | Summary of Care ---
Author Name Unknown Organization [facility] Address [address] [place] [address] Phone [phone] Care Team Providers Care Assembling Motor Builder Name Role Phone Breanna Cardenas MD [facility] Care Provider Encounter Details Date Type Department Care Team (Late st Contact Info) Description 01/02/2024 Orders Only Outcomes Research Department [address] [place] [address] Angie Almeida CHRA [facility] [employer] [facility] Other*[id number] Allergies No known active allergiesdocumented as of this encounter (statuses as of 01/02/2024) Medications Medication Sig Dispensed Refills Start Date End Date Status INTROVALE 0.15-0.03 MG per tablet One daily as directed 12/04/2014 Active Multiple Vitamin (MULTI VITAMIN DAILY) TABS One daily Active loratadine (CLARITIN) 10 MG Tablet One daily Active VENTOLIN HFA 108 (90 BASE) MCG/ACT inhaler Every 4 hours as needed for chest tightness, wheezing, coughing or SOB 02/27/2015 Active [place]mage-3 Fatty Acids (FISH OIL) 300 MG CAPS 1 pill 3x/day Active buPROPion extended release, SR, (WELLBUTRIN SR) 150 MG TB12 Take 1 Tab by mouth 2 times a day. 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 Chronic otitis externa 04/29/2008 Otitis media Impacted cerumen Allergic rhinitis Other diseases of respirator y system, not elsewhere classified documented as of this encounter (statuses as of 01/02/2024) Resolved Problems Problem Noted Date Diagnosed Date Resolved Date Other acute otitis externa 1 06/29/2007 documented as of this encounter (statuses as of 01/02/2024) Immunizations No known immunizationsdocumented as of this encounter Social History Tobacco Use Types Packs/Day Years Used Date Smoking Tobacco: Former Smokeless Tobacco: Never Alcohol Use Standard Drinks/Week Comments No 0 (1 standard drink = 0.6 oz pur e alcohol) Utilities Answer Date Recorded Do you have trouble paying y our heating, water, or electric bill? (Adult - for ages 18 years and over) Not on file 11/22/2023 Is your family able to pay t he heat, water, or electric bill? (Household - for ages 0-17 years) Not on file 11/22/2023 Does your family have access to good internet? (Household - for ages 0-17 years) Not on file 11/22/2023 Social Connections Answer Date Recorded How often do you feel lonely or isolated from those around you? (Adult - for ages 18 years and over) Not on file 11/22/2023 Sex and Gender Information Value Date Recorded Sex Assigned at Not on file Gender Identity Not on file Sexual Orientation Not on file documented as of this encounter Plan of Treatment Scheduled Orders Name Type Priority Associated Diagnoses Orde r Schedule MY[facility] INITIAL ADULT Lab Routine [facility] Other*[id number] Expected: 01/02/2024 (Approximate), Expires: 01/21/2025 Health Maintenance Due Date Last Done Comments Depression Screening 2006 HIV Screening 2009 Hepatitis C Screening 2012 DTaP,Tdap,and Td Vaccines (1 - Tdap) 2013 Hepatitis B Vaccine (1 of 3 - 19+ 3-dose series) 2013 Pap Smear 09/16/2015 HbA1c 12/30/2016 12/31/2015 COVID-19 Vaccine (1 - 2022-2 4 season) 2023 Influenza Vaccine (FLU shot) (#1) 2024 HPV (Gardasil) Vaccine Aged Out No lo nger eligible based on patient's age to complete [...] this encounter Visit Diagnoses Diagnosis [facility] Other*[id number] documented in this encounter Care Teams Assembling Motor Builder Relationship Specialty Start Date End Date Breanna Cardenas MD PCP - General Internal Medicine 10/02/14 documented as of this encounter
--- NOTE | 2024-02-13 05:40 | Emergency Department Note ---
Impression & Plan Vertigo, Symptomatic anemia, Vaginal candidiasis, Hypertension, Elevated troponin ED Provider Note CHIEF COMPLAINT: Vertigo HISTORY OF PRESENTING ILLNESS: This 28-year-old female patient presents to the emergency department with her significant other for evaluation of vertigo type symptoms. The patient states that she has had a runny nose, nasal congestion, and ringing in her ears for the past couple of days. She is now sensitive to light and feels dizzy. She also feels like she is having trouble keeping her balance. She states that the last time she had similar symptoms her Hgb was 5.9. The patient states that they did a "big workup" and couldn't find out why she was anemic before. Denies hematochezia, melena, hematuria, hemoptysis, or hematemesis. However, she has been having a lot of nose bleeds since the symptoms started. Denies any fevers. Has also had some chest pain and SOB along with the symptoms. Denies abdominal pain, nausea, or vomiting. She has been having abnormal vaginal discharge and concerned that she might have a yeast infection. She has also been having burning with urination and going more frequently. Denies any diarrhea, constipation, or problems with her BMs. LMP 2 weeks ago and states that she has always had heavy periods. The patient was admitted in April 2023 for severe iron deficiency anemia with a hemoglobin of 5.9. She was given 4 units of packed red blood cells and IV iron infusions. It was felt the patient's anemia was likely secondary to her heavy menstrual periods. No GI source of anemia was suspected. REVIEW OF SYSTEMS: See HPI for pertinent positives and pertinent negatives. ALLERGIES: NKDA MEDICATIONS: Nexium, Vit D PAST MEDICAL HISTORY: GERD, history of anemia, retinoblastoma dx at PHYSICAL EXAM: VITALS: Vitals are noted on the nurse's note and reviewed by myself. GENERAL: No acute distress, non-diaphoretic. SKIN: Capillary reflex less than 2 seconds. HEAD: No scalp tenderness. No step-offs felt. EARS: Bilateral external auditory canals clear. Bilateral tympanic membranes pearly scott without erythema or effusion. No hemotympanum. No campbell sign. No mastoid tenderness. EYES: Pupils equal round and reactive to light and accommodation. Conjunctivae without injection, sclerae without icterus. Extraocular movements intact without pain. No nystagmus. NOSE: Patent, turbinates without inflammation or discharge. No sinus tenderness. No septal hematoma or bleeding. FACE: No facial bone tenderness. Full range of motion of the jaw without tenderness. No facial droop. MOUTH: Mucous membranes moist. Uvula midline. Airway patent. Tongue does not deviate. NECK: Supple without nuchal rigidity. Cervical spine is nontender. Full range of motion of the neck without tenderness and normal strength. HEART: Regular rate and rhythm without murmurs gallops or rubs. LUNGS: Clear to auscultation bilaterally without wheezes, rales or rhonchi. No retractions or accessory muscle use. No chest wall tenderness. ABDOMEN: Positive bowel sounds x 4. Normal tympanic percussion. Soft, nontender, without masses or organomegaly. No guarding or rebound tenderness. PELVIC EXAM: Permission to perform the exam. Lunch Truck Operator in the room for the exam. Labia majora and labia minora are significantly erythematous and edematous. There is thick white vaginal discharge. Vaginal canal is also erythematous and edematous with thick white vaginal discharge as well as a thinner yellow discharge. No foul odor. Cervix without lesions and no cervical motion tenderness. Uterus is small and nontender. Adnexa nontender without obvious masses. MUSCULOSKELETAL: No tenderness of the thoracic or lumbar spine or paraspinal muscles. Full range of motion of the bilateral upper and lower extremities. Strength 5/5 and equal bilaterally in the upper and lower extremities. Peripheral pulses 2+ and equal in the bilateral upper and lower extremities. NEURO: Patient was alert and oriented to person place and time. Normal mental status exam. Normal sensation to light and sharp touch. Cerebellar function intact. No focal neurological deficits. DIFFERENTIAL DIAGNOSIS: Differential diagnosis includes benign positional vertigo, dehydration, hypovolemia, anemia, tumor, infection, hypoglycemia, electrolyte abnormalities, cardiac sources, intracerebral event, toxicologic, neurologic, as well as other pathologies. ED COURSE AND MEDICAL DECISION MAKING: MEDICATIONS GIVEN: 1 L normal saline solution bolus. Tylenol 1000 mg IV. Zofran 4 mg IV. Diflucan 150 mg p.o. MONITOR: Continuous roll trucker: Order was placed for continuous roll trucker. Patient was placed on the roll trucker and continuous pulse ox. Patient was noted to be in normal sinus rhythm at an initial rate of 88 bpm per my interpretation. EKG: EKG was interpreted by myself as normal sinus rhythm at 81 bpm with no acute ST or T wave changes. INTERPRETATION OF LABS: I interpreted the labs with full lab results as below in the lab section of this note. Pertinent lab results discussed in the MDM section below. INTERPRETATION OF IMAGING: Imaging studies were interpreted by myself and read by radiology as per the imaging section of this note. CT scan of the head without contrast was negative for acute intracranial etiology. Chest x-ray shows right basilar opacities which could represent atelectasis versus a mild pneumonitis. EXTERNAL RECORDS REVIEWED: I reviewed the patient's previous admission as summarized above. CONSULTATIONS: On-call hospitalist [facility] SUMMARY: I examined the patient. The patient presents to the emergency department for evaluation of multiple complaints including vertigo, dizziness, chest pain, shortness of breath, runny nose, nasal congestion, UTI symptoms, yeast infection symptoms, and frequent nosebleeds over the past couple of days. The patient states that she has had similar episodes in the past and has had a hemoglobin down to 5.8 with unknown cause of her anemia per patient. She denies any symptoms of bleeding other than her frequent nosebleeds and her history of heavy periods with her last menstrual period 2 weeks ago. An IV lock was placed and labs were drawn. She was given 1 L normal saline solution bolus, Tylenol 1000 mg IV, and Zofran 4 mg IV with some improvement of her symptoms. The patient appears to have a significant yeast infection on exam and she was given an oral dose of Diflucan. Vaginal cultures are still pending. White blood cell count elevated 11.87. Hemoglobin low, but stable at 7.8. Platelet count normal at 363. Coags were normal. D-dimer normal. Glucose 111, but CMP otherwise without significant abnormalities. Initial high-sensitivity troponin elevated at 27.3 with repeat decreased to 22.3. Elevated troponin most likely demand ischemia with normal EKG. Magnesium normal. Procalcitonin normal. TSH normal. Serum hCG negative. Urine appears contaminated rather than infected with culture pending. COVID, RSV, and influenza testing negative. Monoscreen negative. Lyme disease screen negative. CT scan of the head without contrast was negative for acute intracranial etiology. Chest x-ray shows right basilar opacities which could represent atelectasis versus a mild pneumonitis. Due to the patient's symptomatic anemia with elevated troponin and elevated blood pressures, it was felt the patient would benefit from admission for further inpatient evaluation and treatment. I spoke with the on-call hospitalist who agreed to admit the patient for further management. Please refer to their dictation for further details. The patient's care was transferred in stable condition. DIAGNOSIS: Vertigo Symptomatic anemia Elevated troponin Hypertension Vaginal yeast infection Past Med/Surg History Problem List (Updated 02/14/24 @ 01:45 by Apple Plasencia PA-C) Elevated troponin (Acute) Hypertension (Acute) Symptomatic anemia (Acute) Vertigo (Acute) Vaginal candidiasis (Acute) Demand ischemia Virus not detected Accelerated hypertension Splenomegaly Menorrhagia Morbid obesity with BMI of 50.0-59.9, adult Iron deficiency anemia Palpitations Anemia requiring transfusions (Acute) Lightheadedness (Acute) Leukocytosis (Acute) Symptomatic anemia (Acute) Hx of tonsillectomy Migraines Medical History Morbid obesity with BMI of 60.0-69.9, adult Social History Smoking Status: Current some day smoker Tobacco Type: E-cigarettes / Vaping Second Hand Exposure: No; Do You Dip or Chew Tobacco: No; Hx Alcohol Use: No Hx Substance Use: No Preferred Language: Greek Communication Ability: Effective Farmworker Required: No Beliefs That Will Affect Care: None marital status: Single Current Living Situation: Alone current occupational status: unemployed Feels Safe at Home: Yes Assistive Devices: None Allergies Allergies Allergy/AdvReac Type Severity Reaction Status Date / Time No Known Allergies AdvReac Unknown Verified 02/13/24 10:23 Home Meds Home Medications Medication Instructions Recorded Confirmed cholecalciferol (vitamin D3) 50 50 mcg PO DAILY 04/30/23 02/13/24 mcg (2,000 unit) tablet famotidine 10 mg tablet 10 mg PO DAILY 02/13/24 02/13/24 Results & Data (ED) Vital Signs Vital Signs - 24 hr 02/13/24 05:25 02/13/24 06:00 02/13/24 06:01 Temperature 36.5 C Temperature Source Temporal Artery Scan Pulse Rate 96 H 85 83 Pulse Rate [Apical] Pulse Rate from SpO2 Sensor 85 Pulse Rhythm Respiratory Rate 16 15 Respiratory Effort / Characteristics Non-Labored Respiratory Depth Normal Respiratory Pattern Regular Blood Pressure 216/125 H 194/109 H Blood Pressure [Right Arm] Blood Pressure Mean 155 129 Blood Pressure Mean [Right Arm] Pulse Oximetry 97 98 Oxygen Delivery Method Room Air Sepsis Recent Fever Within 48 Hours No Sepsis New/Unexplained Change in Mental Status N/A Sepsis Action Taken by Nursing No Action Required 02/13/24 06:30 02/13/24 07:00 02/13/24 07:12 Temperature Temperature Source Pulse Rate 89 Pulse Rate [Apical] Pulse Rate from SpO2 Sensor 92 H Pulse Rhythm Regular Respiratory Rate 16 16 20 Respiratory Effort / Characteristics Non-Labored Respiratory Depth Normal Respiratory Pattern Blood Pressure 186/111 H Blood Pressure [Right Arm] Blood Pressure Mean 136 Blood Pressure Mean [Right Arm] Pulse Oximetry 96 95 98 Oxygen Delivery Method Room Air Room Air Sepsis Recent Fever Within 48 Hours Sepsis New/Unexplained Change in Mental Status Sepsis Action Taken by Nursing 02/13/24 09:00 02/13/24 10:14 Temperature Temperature Source Pulse Rate Pulse Rate [Apical] 80 87 Pulse Rate from SpO2 Sensor Pulse Rhythm Respiratory Rate 22 20 Respiratory Effort / Characteristics Non-Labored Non-Labored Respiratory Depth Normal Normal Respiratory Pattern Blood Pressure Blood Pressure [Right Arm] 163/113 H 185/118 H Blood Pressure Mean Blood Pressure Mean [Right Arm] 129 140 Pulse Oximetry 98 97 Oxygen Delivery Method Room Air Room Air Sepsis Recent Fever Within 48 Hours Sepsis New/Unexplained Change in Mental Status Sepsis Action Taken by Nursing Laboratory Data 02/13/24 06:25 02/13/24 06:25 Lab Results 02/13/24 02/13/24 02/13/24 Range/Units 06:25 06:31 08:09 WBC 11.87 H (4.8-10.8) K/ul RBC 4.05 L (4.20-5.40) M/uL Hgb 7.8 L (12.0-16.0) g/dl Hct 26.8 L (37.0-47.0) % MCV 66.2 L (80.0-100.0) fL MCH 19.3 L (25.0-34.0) pg MCHC 29.1 L (32.0-36.0) g/dL RDW Std Deviation 42.4 (36.4-46.3) fL RDW Coeff of Jerome 17.9 H (11.5-14.5) % Plt Count 363 (130-400) K/uL MPV 10.3 (9.4-12.4) fL Immature Gran % (Auto) 0.5 % Neut % (Auto) 73.5 % Lymph % (Auto) 16.2 % [place] % (Auto) 7.2 % Eos % (Auto) 1.6 % Baso % (Auto) 1.0 % Neut # (Auto) 8.73 H (1.40-6.50) K/uL Lymph # (Auto) 1.92 (1.20-3.40) K/uL [place] # (Auto) 0.85 H (0.11-0.59) K/uL Eos # (Auto) 0.19 (0.00-0.50) K/uL Baso # (Auto) 0.12 (0.00-0.20) K/uL Immature Gran # (Auto) 0.06 (0.01-0.20) K/uL Polychromasia 1+ Hypochromasia Present Microcytosis Present Tear Drop Cells 1+ Ovalocytes 1+ PT 11.5 (9.0-12.0) Seconds INR 1.1 (0.9-1.1) APTT 30 (21-31) Seconds PTT Ratio 1.1 D-Dimer 340 (0-500) ug/L FEU Sodium 140 (136-145) mmol/L Potassium 3.6 (3.5-5.1) mmol/L Chloride 105 (98-107) mmol/L Carbon Dioxide 26 (21-32) mmol/L Anion Gap 9 (3-11) BUN 10 (6-23) mg/dl Creatinine 1.13 (0.6-1.2) mg/dl Est Cr Clr Drug Dosing 106.5 ml/min Est GFR ( Amer) 76.1 ml/min Est GFR (Non-Af Amer) 65.6 ml/min BUN/Creatinine Ratio 8.8 L (10-20) Glucose 111 H (70-99(Fasting)) mg/dl Calcium 9.4 (8.6-10.3) mg/dl Magnesium 2.1 (1.7-2.4) mg/dl Total Bilirubin 0.3 (0.2-1.0) mg/dl AST 12 L (13-39) U/L ALT 7 (7-52) U/L Alkaline Phosphatase 57 (34-104) U/L Troponin I High Sens 27.3 H 22.3 H (0-14) pg/ml Total Protein 7.1 (6.0-8.3) gm/dl Albumin 4.4 (3.4-5.0) gm/dl Globulin 2.7 (2.5-4.0) gm/dl Albumin/Globulin Ratio 1.6 (0.9-2) Procalcitonin 0.02 (0-0.5) ng/ml TSH 1.418 (0.300-4.500) uIu/ml HCG, Qual Negative (Negative) Lyme Disease Screen Negative (Negative) SARS-CoV-2 (PCR) NEGATIVE (Negative) Monoscreen Negative (Negative) Influenza Type A (PCR) Negative (Neg) Influenza Type B (PCR) Negative (Neg) RSV (RT-PCR) Negative (Neg) Blood Type A Positive Antibody Screen NEGATIVE Administered Medications Acetaminophen (Acetaminophen 325 Mg Tab) 650 mg PO Q4H PRN PRN Reason: Pain or Fever Stop: 03/14/24 14:41 Last Admin: 02/13/24 20:20 Dose: 650 mg Documented By: PHANI Amlodipine Besylate (Amlodipine Besylate 5 Mg Tab) 10 mg PO [facility] Stop: 03/14/24 14:41 Last Admin: 02/13/24 15:58 Dose: 10 mg Documented By: ABDIAS Azithromycin (Azithromycin 250 Mg Tab) 500 mg PO [facility] Stop: 02/20/24 14:41 Last Admin: 02/13/24 15:59 Dose: 500 mg Documented By: ABDIAS Hydralazine HCl (Hydralazine Hcl 20 Mg/Ml Vial) 10 mg IV Q6 PRN PRN Reason: SBP > 170 or DBP > 100 Stop: 03/14/24 14:41 Last Admin: 02/13/24 15:08 Dose: 10 mg Documented By: ABDIAS Melatonin (Melatonin 3 Mg Tab) 3 mg PO HS PRN PRN Reason: Sleep Stop: 03/14/24 22:12 Last Admin: 02/13/24 23:05 Dose: 3 mg Documented By: PHANI Discontinued Medications Fluconazole (Fluconazole 50 Mg Tab) 150 mg PO NOW ONE Stop: 02/13/24 07:40 Last Admin: 02/13/24 07:55 Dose: 150 mg Documented By: WILLIAM Sodium Chloride (Nss) 1,000 mls @ 999 mls/hr IV .Q1H1M ONE Stop: 02/13/24 06:54 Last Infusion: 02/13/24 08:58 Dose: Infused Documented By: Admin: 02/13/24 06:03 Dose: 999 mls/hr Documented By: IGNACIO Acetaminophen (Ofirmev) 1,000 mg in 100 mls @ 400 mls/hr IV NOW STA Stop: 02/13/24 06:08 Last Infusion: 02/13/24 07:38 Dose: Infused Documented By: Admin: 02/13/24 06:03 Dose: 400 mls/hr Documented By: IGNACIO Ondansetron HCl (Ondansetron Inj 2 Mg/Ml 2 Ml Vial) 4 mg IV NOW STA Stop: 02/13/24 05:55 Last Admin: 02/13/24 06:02 Dose: 4 mg Documented By: IGNACIO Imaging Data Radiologist's Impression: Chest X-Ray 02/13/24 05:52 SINGLE VIEW CHEST CLINICAL HISTORY: Dizziness. FINDINGS: An AP, portable, upright chest radiograph is compared to study dated 04/30/2023 and correlated with chest CT dated 02/21/2023. The examination is degraded by portable technique and patient rotation. The cardiomediastinal silhouette is unremarkable. There are mild right basilar opacities. The lungs and pleural spaces are otherwise clear. No pneumothorax is seen. The bony thorax is grossly intact. IMPRESSION: Right basilar basilar opacities could represent atelectasis versus a mild pneumonitis. Correlate clinically. ACT 112: Negative or not required by law. Electronically signed by: Martell Ghosh M.D. 02/13/2024 6:[address] 02/13/24 05:52 CT SCAN OF THE BRAIN WITHOUT IV CONTRAST CLINICAL HISTORY: Dizziness. Hypertension. COMPARISON STUDY: CT of the brain dated 08/17/2015. TECHNIQUE: Unenhanced axial CT scan of the brain is performed from the vertex to the skull base. A dose lowering technique was utilized adhering to the principles of ALARA. CT DOSE: 625.8 mGy.cm FINDINGS: Brain parenchyma: The brain parenchyma is normal in appearance. There is no hemorrhage, mass effect, or evidence of acute territorial ischemia by CT criteria. Scott-white matter differentiation is preserved. No extra-axial fluid collection is seen. Ventricles, sulci, cisterns: Normal in configuration. Intracranial vasculature: The visualized intracranial vasculature at the skull base is normal in appearance. Calvarium: Unremarkable. Sinuses and mastoids: The visualized paranasal sinuses are clear. The mastoid air cells are well pneumatized. Orbits: The bony orbits are grossly intact. IMPRESSION: No acute intracranial abnormality. ACT 112: Negative or not required by law. Electronically signed by: Martell Ghosh M.D. 02/13/2024 7:36 AM Discharge Plan Visit Data Chief Complaint: Vertigo Stated Complaint: VERTIGO ED Provider: Itzel Aguirre ED Midlevel Provider: Apple Plasencia Discharge Problem: Vertigo, Symptomatic anemia, Vaginal candidiasis, Hypertension, Elevated troponin Patient Disposition: Admitted As Inpatient Condition: Good Discharge Instructions Interventions: ED Discharge Assessment Last Done: 02/13/24 14:28 Discharge Problem: Hypertension Qualifiers: Hypertension type: unspecified Qualified Code(s): I10 - Essential (primary) hypertension
[2024-02-13] MEDS: ONDANSETRON INJ 2 MG/ML 2 ML VIAL IV STA (06:02)
[2024-02-13] MEDS: ACETAMINOPHEN 1,000 MG/100 ML VIAL IV STA (06:03)
[2024-02-13] MEDS: SODIUM CHLORIDE 0.9% 1,000 ML IV ONE (06:03)
[2024-02-13 06:44] LABS: Basophils # (auto) 0.12 K/uL (0.00-0.20); Eosinophils # (auto) 0.19 K/uL (0.00-0.50); Eosinophils % (auto) 1.6 %; Hematocrit (blood only) 26.8 % (37.0-47.0); Hemoglobin 7.8 g/dl (12.0-16.0); Immature Granulocytes # (auto) 0.06 K/uL (0.01-0.20); Immature Granulocytes % (auto) 0.5 %; Lymphocytes # (auto) 1.92 K/uL (1.20-3.40); Lymphocytes % (auto) 16.2 %; Mean Corpuscular Hemoglobin 19.3 pg (25.0-34.0); Mean Corpuscular Hgb Conc 29.1 g/dL (32.0-36.0); Mean Corpuscular Volume 66.2 fL (80.0-100.0); Monocytes # (auto) 0.85 K/uL (0.11-0.59); Monocytes % (auto) 7.2 %; Neutrophils # (auto) 8.73 K/uL (1.40-6.50); Neutrophils % (auto) 73.5 %; RDW Coefficient of Variation 17.9 % (11.5-14.5); RDW Standard Deviation 42.4 fL (36.4-46.3); Red Blood Count 4.05 M/uL (4.20-5.40); White Blood Count 11.87 K/ul (4.8-10.8)
[2024-02-13 06:50] LABS: Mean Platelet Volume 10.3 fL (9.4-12.4); Platelet Count 363 K/uL (130-400)
--- NOTE | 2024-02-13 06:58 | XRay Report ---
SINGLE VIEW CHEST CLINICAL HISTORY: Dizziness. FINDINGS: An AP, portable, upright chest radiograph is compared to study dated 04/30/2023 and correla radha with chest CT dated 02/21/2023. The examination is degraded by portable technique and patient rota tion. The cardiomediastinal silhouette is unremarkable. There are mild right basilar opacities. The lungs and pleural spaces are otherwise clear. No pneumothorax is seen. The bony thorax is grossly int act. IMPRESSION: Right basilar basilar opacities could represent atelectasis versus a mild pneumonitis. Co rrelate clinically. ACT 112: Negative or not required by law. Electronically signed by: Martell Ghosh M.D. 02/13/2024 6:56 AM
[2024-02-13 07:00] LABS: Albumin Globulin Ratio 1.6 (0.9-2); Albumin Level 4.4 gm/dl (3.4-5.0); BUN Creatinine Ratio 8.8 (10-20); Bilirubin,Total 0.3 mg/dl (0.2-1.0); Calcium 9.4 mg/dl (8.6-10.3); Creatinine Clr Calc Pharmacy 106.5 ml/min; Est GFR (African American) 76.1 ml/min; Est GFR (Non-African American) 65.6 ml/min; Globulin 2.7 gm/dl (2.5-4.0); Magnesium 2.1 mg/dl (1.7-2.4); Potassium 3.6 mmol/L (3.5-5.1); Total Protein 7.1 gm/dl (6.0-8.3)
[2024-02-13 07:06] LABS: Troponin I High Sensitivity 27.3 pg/ml (0-14)
[2024-02-13 07:08] LABS: Hypochromasia Present; Microcytosis Present; Ovalocytes 1+; Polychromasia 1+; Tear Drop Cells 1+
[2024-02-13 07:15] LABS: D Dimer 340 ug/L FEU (0-500); INR 1.1 (0.9-1.1); Partial Thromboplastin Ratio 1.1; Partial Thromboplastin Time 30 Seconds (21-31); Prothrombin Time 11.5 Seconds (9.0-12.0); Thyroid Stimulating Hormone 1.418 uIu/ml (0.300-4.500)
--- NOTE | 2024-02-13 07:37 | CT Scan Report ---
CT SCAN OF THE BRAIN WITHOUT IV CONTRAST CLINICAL HISTORY: Dizziness. Hypertension. COMPARISON STUDY: CT of the brain dated 08/17/2015. TECHNIQUE: Unenhanced axial CT scan of the brain is performed from the vertex to the skull base. A d ose lowering technique was utilized adhering to the principles of ALARA. CT DOSE: 625.8 mGy.cm FINDINGS: Brain parenchyma: The brain parenchyma is normal in appearance. There is no hemorrhage, mass effect, or evidence of acute territorial ischemia by CT criteria. Scott-white matter differentiation is preser tk. No extra-axial fluid collection is seen. Ventricles, sulci, cisterns: Normal in configuration. Intracranial vasculature: The visualized intracranial vasculature at the skull base is normal in appe arance. Calvarium: Unremarkable. Sinuses and mastoids: The visualized paranasal sinuses are clear. The mastoid air cells are well pneu matized. Orbits: The bony orbits are grossly intact. IMPRESSION: No acute intracranial abnormality. ACT 112: Negative or not required by law. Electronically signed by: Martell Ghosh M.D. 02/13/2024 7:36 AM
[2024-02-13 07:49] LABS: Monotest Negative (Negative); Pregnancy Test, Serum Negative (Negative)
[2024-02-13] MEDS: FLUCONAZOLE 50 MG TAB PO ONE (07:55)
[2024-02-13 08:22] LABS: Influenza A virus by PCR Negative (Neg); Influenza B virus by PCR Negative (Neg); RSV by PCR Negative (Neg); SARS CoV2 RNA(COVID-19) Ceph NEGATIVE (Negative)
--- NOTE | 2024-02-13 10:31 | History & Physical Report ---
Date of Service February 13, 2024 Assessment & Plan (1) Accelerated hypertension: Plan: Blood pressure significantly high Patient tells me that her blood pressure has been high but she does not take any medications for it I will start her on amlodipine 10 mg p.o. daily Ordered an echocardiogram to look for hypertensive heart disease given longstanding uncontrolled hypertension Ordered IV hydralazine as needed (2) Lightheadedness: Plan: It is associated with ringing in the ears She describes a feeling of the room spinning around her when she moves her head from [id number] Most likely benign positional vertigo Consult PT/OT for BPV (3) Virus not detected: Plan: Patient has been having nasal congestion, runny nose, shortness of breath for about a week. Flu, COVID, RSV negative Procalcitonin negative Chest x-ray showed a right base opacity but no clinical significance without any hypoxia, cough, fever Will monitor clinically without antibiotics Supportive treatment Patient received IV fluid in the emergency room. Will hold off on further fluid resuscitation because blood pressure is elevated. (4) Iron deficiency anemia: Plan: Patient's hemoglobin is 7.8 today which is at her usual baseline She has been assured that her vertigo/dizziness is not due to anemia this time (5) Demand ischemia: Plan: Very mildly elevated troponin Trending down Most likely demand ischemia due to uncontrolled hypertension, viral illness Check echocardiogram EKG negative No chest pain (6) Vaginal candidiasis: Plan: Patient complains of vaginal discharge Was prescribed fluconazole in the emergency room Plan Full code DVT prophylaxis: Ambulate History of Present Illness Chief Complaint: Runny nose, dizziness, ringing in the ears Primary Care Provider: NO PCP This is a 28-year-old female who presented to the ER with several complaints. She stated that about a week ago she started having some runny nose, nasal congestion, shortness of breath. She thought it was a viral illness and did not think much of it. However 2 days ago, she started feeling dizzy along with some ringing in the ears. She stated that the last time she was dizzy, she came to the ER and was found to have severe anemia (hemoglobin 5.9) and required blood transfusion. She assumed that her hemoglobin must be low again and so she came to the ER. Her hemoglobin was 7.8 today which is near her baseline. But her blood work was significant for mild leukocytosis at 12, mildly elevated troponin in the 20s and thus the ER physician wanted the patient to be admitted. She was also noted to be hypertensive. The patient never had any chest pain. Her EKG is negative. She denies any shortness of breath or cough. She is on room air. She says that she has been feeling dizzy when she moves too quickly. Sometimes moving her head from [id number] too quickly will cause her to feel dizzy. She also has had a ringing sensation in her years associated with the dizziness. She tested negative for COVID, flu, RSV. Procalcitonin level negative. She has also been complaining of vaginal discharge. She was given a dose of fluconazole p.o. x 1 in the emergency room. Past medical history 1. Morbid obesity with a BMI of 50 2. Iron deficiency anemia, requiring hospitalization in April 2023. After extensive workup, anemia was thought to be likely due to menorrhagia 3. Migraine Allergies Allergy/AdvReac Type Severity Reaction Status Date / Time No Known Allergies AdvReac Unknown Verified 02/13/24 10:23 Home Medications Medication Instructions Recorded Confirmed Type cholecalciferol (vitamin D3) 50 50 mcg PO DAILY 04/30/23 02/13/24 History mcg (2,000 unit) tablet famotidine 10 mg tablet 10 mg PO DAILY 02/13/24 02/13/24 History Past Med/Surg History Problem List (Updated 02/13/24 @ 14:06 by Lizet Moran MD) Vaginal candidiasis Demand ischemia Virus not detected Accelerated hypertension Splenomegaly Menorrhagia Morbid obesity with BMI of 50.0-59.9, adult Iron deficiency anemia Palpitations Anemia requiring transfusions (Acute) Lightheadedness (Acute) Leukocytosis (Acute) Symptomatic anemia (Acute) Hx of tonsillectomy Migraines Medical History Morbid obesity with BMI of 60.0-69.9, adult Social History Smoking Status: Current every day smoker Tobacco Type: Cigarettes Second Hand Exposure: No; Do You Dip or Chew Tobacco: No; Hx Alcohol Use: No Hx Substance Use: No Preferred Language: Slovenian Communication Ability: Effective [employer] Required: No Beliefs That Will Affect Care: None marital status: Single Current Living Situation: Significant Other current occupational status: unemployed Feels Safe at Home: Yes Assistive Devices: None Review of Systems Review of Systems: All systems reviewed & are unremarkable except as noted in Subjective Physical Exam Physical Exam: General appearance: Awake, conversant, able to answer questions appropriately. AOx3. Morbidly obese Pupils: Equally reactive to light and accommodation Neck: No masses, no thyromegaly Respiration: Clear to auscultation bilaterally. Normal effort Cardiovascular: S1-S2/regular rate and rhythm. No murmur, rubs or gallop. No edema. Abdomen: Soft, nontender, nondistended. No hepatosplenomegaly Musculoskeletal: No clubbing, no cyanosis, normal range of motion Skin: No rashes, no nodules Neuro exam: Cranial nerves intact, sensation grossly intact Psychiatric: Patient has good judgment and insight. AOx3. Mood and affect appear normal Lymphatics: No cervical or axillary lymphadenopathy noted Results & Data Results & Data Vital Signs (Past 12 Hours) Vital Signs Temp Pulse Pulse Resp BP BP Pulse Ox 02/13/24 10:14 87 20 185/118 H 97 02/13/24 09:00 80 22 163/113 H 98 02/13/24 07:12 20 98 02/13/24 07:00 16 186/111 H 95 02/13/24 06:30 89 16 96 02/13/24 06:01 83 02/13/24 06:00 85 15 194/109 H 98 02/13/24 05:25 36.5 C 96 H 16 216/125 H 97 O2 Del Method 02/13/24 10:14 Room Air 02/13/24 09:00 Room Air 02/13/24 07:12 Room Air 02/13/24 07:00 02/13/24 06:30 Room Air 02/13/24 06:01 02/13/24 06:00 02/13/24 05:25 Room Air Laboratory Results Abnormal lab results 02/13/24 02/13/24 02/13/24 Range/Units 06:25 08:09 Unknown WBC 11.87 H (4.8-10.8) K/ul RBC 4.05 L (4.20-5.40) M/uL Hgb 7.8 L (12.0-16.0) g/dl Hct 26.8 L (37.0-47.0) % MCV 66.2 L (80.0-100.0) fL MCH 19.3 L (25.0-34.0) pg MCHC 29.1 L (32.0-36.0) g/dL RDW Coeff of Jerome 17.9 H (11.5-14.5) % Neut # (Auto) 8.73 H (1.40-6.50) K/uL Dawson # (Auto) 0.85 H (0.11-0.59) K/uL BUN/Creatinine Ratio 8.8 L (10-20) Glucose 111 H (70-99(Fasting)) mg/dl AST 12 L (13-39) U/L Troponin I High Sens 27.3 H 22.3 H (0-14) pg/ml Urine Appearance Cloudy A (Clear) Urine Protein 1+ H (Negative) Ur Leukocyte Esterase 1+ H (Negative) Urine WBC (Auto) 21-50 H (0-5) /hpf U Hyaline Cast (Auto) 3-5 H (0-2) /lpf U Epithel Cells (Auto) 6-10 H (0-2) /hpf Urine Bacteria (Auto) 1+ H (None Seen) Diagnostic Findings Chest X-Ray 02/13/24 05:52 SINGLE VIEW CHEST CLINICAL HISTORY: Dizziness. FINDINGS: An AP, portable, upright chest radiograph is compared to study dated 04/30/2023 and correlated with chest CT dated 02/21/2023. The examination is degraded by portable technique and patient rotation. The cardiomediastinal silhouette is unremarkable. There are mild right basilar opacities. The lungs and pleural spaces are otherwise clear. No pneumothorax is seen. The bony thorax is grossly intact. IMPRESSION: Right basilar basilar opacities could represent atelectasis versus a mild pneumonitis. Correlate clinically. ACT 112: Negative or not required by law. Electronically signed by: Martell Ghosh M.D. 02/13/2024 6:[address] 02/13/24 05:52 CT SCAN OF THE BRAIN WITHOUT IV CONTRAST CLINICAL HISTORY: Dizziness. Hypertension. COMPARISON STUDY: CT of the brain dated 08/17/2015. TECHNIQUE: Unenhanced axial CT scan of the brain is performed from the vertex to the skull base. A dose lowering technique was utilized adhering to the principles of ALARA. CT DOSE: 625.8 mGy.cm FINDINGS: Brain parenchyma: The brain parenchyma is normal in appearance. There is no hemorrhage, mass effect, or evidence of acute territorial ischemia by CT criteria. Scott-white matter differentiation is preserved. No extra-axial fluid collection is seen. Ventricles, sulci, cisterns: Normal in configuration. Intracranial vasculature: The visualized intracranial vasculature at the skull base is normal in appearance. Calvarium: Unremarkable. Sinuses and mastoids: The visualized paranasal sinuses are clear. The mastoid air cells are well pneumatized. Orbits: The bony orbits are grossly intact. IMPRESSION: No acute intracranial abnormality. ACT 112: Negative or not required by law. Electronically signed by: Martell Ghosh M.D. 02/13/2024 7:36 AM Code Status & VTE Plan VTE Prophylaxis Plan VTE Prophylaxis will be ordered: Yes PG Care Time/CCT Total # of Minutes Spent Total Time Spent with Patient: Total time spent is greater than 50% in coordination of care (as documented) at patient's floor/unit and/or counseling patient: Coding Level of Care Code 77236 INT INP/OBS CARE 2/55MIN Diagnoses Accelerated hypertension I10 Lightheadedness R42 Virus not detected Z01.89 Iron deficiency anemia D50.9 Demand ischemia I24.89 Vaginal candidiasis B37.31
--- NOTE | 2024-02-13 13:06 | Electrocardiogram Report ---
Test Reason : Blood Pressure : */* mmHG Vent. Rate : 81 BPM Atrial Rate : 81 BPM P-R Int : 150 ms QRS Dur : 82 ms QT Int : 384 ms P-R-T Axes : -2 -16 116 degrees QTcB Int : 446 ms Normal sinus rhythm Possible Anterolateral infarct (cited on or before 21-Feb-2023) Abnormal ECG When compared with ECG of 30-Apr-2023 20:12, Questionable change in initial forces of Lateral leads T wave inversion now evident in Lateral leads Confirmed by Rigoberto Jennings ([id number]) on 02/13/2024 1:06:10 PM Referred By: REFERRED SELF Confirmed By: Rigoberto Jennings
[2024-02-13 13:15] LABS: Appearance Urine Cloudy (Clear); Bacteria Urine Automated 1+ (None Seen); Bilirubin Urine Negative (Negative); Blood Urine Negative (Negative); Color Urine Yellow; Glucose Urine UA Negative (Negative); Ketones Urine Negative (Negative); Leukocyte Esterase Urine 1+ (Negative); Nitrite Urine Negative (Negative); Protein Urine 1+ (Negative); RBC Urine Automated 0-2 /hpf (0-2); Specific Gravity Urine 1.026 (1.000-1.030); Urobilinogen Urine Negative (Negative); WBC Urine Automated 21-50 /hpf (0-5)
[2024-02-13] MEDS ORDERED: ONDANSETRON INJ 2 MG/ML 2 ML VIAL IV PRN (14:42)
[2024-02-13] MEDS ORDERED: ALUMINUM/MAGNESIUM SUSP 30 ML UDC PO PRN (14:42)
[2024-02-13] MEDS ORDERED: POLYETHYLENE (MIRALAX) 17 GM PACK PO PRN (14:42)
[2024-02-13] MEDS ORDERED: MAGNESIUM HYDROXIDE SUSP 30 ML UDC PO PRN (14:42)
[2024-02-13] MEDS: hydrALAZINE HCL 20 MG/ML VIAL IV PRN (15:08)
[2024-02-13] MEDS: amLODIPine BESYLATE 5 MG TAB PO SCH (15:58)
--- NOTE | 2024-02-13 15:58 | XCELERA ---
[id number]
[2024-02-13] MEDS: AZITHROMYCIN 250 MG TAB PO SCH (15:59)
[2024-02-13] MEDS: ACETAMINOPHEN 325 MG TAB PO PRN (20:20)
[2024-02-13] MEDS: MELATONIN 3 MG TAB PO PRN (23:05)
[2024-02-14 09:00] LABS: Hematocrit (blood only) 25.7 % (37.0-47.0); Hemoglobin 7.3 g/dl (12.0-16.0); Mean Corpuscular Hgb Conc 28.4 g/dL (32.0-36.0); Mean Corpuscular Volume 66.9 fL (80.0-100.0); Mean Platelet Volume 9.9 fL (9.4-12.4); Platelet Count 381 K/uL (130-400); RDW Coefficient of Variation 17.8 % (11.5-14.5); RDW Standard Deviation 42.2 fL (36.4-46.3); Red Blood Count 3.84 M/uL (4.20-5.40); White Blood Count 11.01 K/ul (4.8-10.8)
[2024-02-14 09:24] LABS: BUN Creatinine Ratio 9.5 (10-20); Creatinine Clr Calc Pharmacy 114.6 ml/min; Est GFR (African American) 83.1 ml/min; Est GFR (Non-African American) 71.7 ml/min; Potassium 3.9 mmol/L (3.5-5.1)
[2024-02-14] MEDS: hydroCHLOROthiazide 25 MG TAB PO SCH (09:30)
[2024-02-14 11:30] LABS: Bacterial Vaginosis RNA POSITIVE (Negative)
[2024-02-14 12:00] LABS: Candida glabrata RNA Negative (Negative); Candida species group RNA POSITIVE (Negative); Trichomonas vaginalis RNA Negative (Negative)
[2024-02-14 12:27] LABS: Chlam trach RNA(Genit,Ureth,Ur Not Detected (NotDetected); GC(Neis gon)RNA(Genit,Ureth,Ur Not Detected (NotDetected)
--- NOTE | 2024-02-14 12:59 | Hospitalist Progress Note ---
Date of Service February 14, 2024 Assessment & Plan (1) Accelerated hypertension: Plan: Blood pressure significantly high Patient tells me that her blood pressure has been high but she does not take any medications for it She was started on amlodipine 10 mg I also added hydrochlorothiazide 25 mg Echocardiogram shows mild concentric LVH most likely due to longstanding uncontrolled hypertension Ordered IV hydralazine as needed (2) Lightheadedness: Plan: It is associated with ringing in the ears She describes a feeling of the room spinning around her when she moves her head from [id number] Most likely benign positional vertigo She could also have some labyrinthitis due to recent viral illness Patient says that she is feeling less dizzy today Hemoglobin down to 7.3 today. Could be dilutional because she received IV fluids yesterday. Will monitor. (3) Virus not detected: Plan: Patient has been having nasal congestion, runny nose, shortness of breath for about a week. Flu, COVID, RSV negative Procalcitonin negative Chest x-ray showed a right base opacity but no clinical significance without any hypoxia, cough, fever Will monitor clinically without antibiotics Supportive treatment Patient received IV fluid in the emergency room. Will hold off on further fluid resuscitation because blood pressure is elevated. (4) Iron deficiency anemia: Plan: Patient's hemoglobin is 7.8 on admission which is her baseline Today 02/13, hemoglobin dropped to 7.3 which could be dilutional The patient says that her dizziness is better when her anemia is worse. Most likely her dizziness is not related to her anemia (5) Demand ischemia: Plan: Very mildly elevated troponin Trending down Most likely demand ischemia due to uncontrolled hypertension, viral illness Echocardiogram showed no wall motion abnormalities EKG negative No chest pain (6) Vaginal candidiasis: Plan: Patient complains of vaginal discharge Was prescribed fluconazole in the emergency room Tested positive for bacterial vaginosis. Ordered clindamycin vaginally Plan Full code DVT prophylaxis: Ambulate Likely discharge tomorrow Admission and Anticipated Discharge Date Admission Date: February 13, 2024 Subjective Patient says that she is less dizzy today. However noted that her hemoglobin was 7.3 today down from 7.8 Review of Systems Review of Systems: All systems reviewed & are unremarkable except as noted in Subjective Physical Exam Physical Exam: General: Awake, conversant Heart: S1, S2/regular rate and rhythm, no murmur rubs or gallops Lungs: Clear to auscultation bilaterally. Normal effort Abdomen: Soft/nontender/nondistended. No hepatosplenomegaly Extremities: No clubbing/cyanosis. No edema Behavior: Appropriate, cooperative Results & Data Results & Data Vital Signs (Past 12 Hours) Vital Signs Temp Pulse Pulse Resp BP Pulse Ox O2 Del Method 02/14/24 11:25 36.6 C 96 H 18 163/89 H 96 Room Air 02/14/24 07:59 92 H 02/14/24 07:52 Room Air 02/14/24 07:44 36.5 C 102 H 18 155/84 H 98 Room Air 02/14/24 02:50 36.4 C L 86 18 166/98 H 97 Room Air Laboratory Results Abnormal lab results 02/13/24 02/13/24 02/14/24 Range/Units 06:41 Unknown 08:36 WBC 11.01 H (4.8-10.8) K/ul RBC 3.84 L (4.20-5.40) M/uL Hgb 7.3 L (12.0-16.0) g/dl Hct 25.7 L (37.0-47.0) % MCV 66.9 L (80.0-100.0) fL MCH 19.0 L (25.0-34.0) pg MCHC 28.4 L (32.0-36.0) g/dL RDW Coeff of Jerome 17.8 H (11.5-14.5) % BUN/Creatinine Ratio 9.5 L (10-20) Urine Appearance Cloudy A (Clear) Urine Protein 1+ H (Negative) Ur Leukocyte Esterase 1+ H (Negative) Urine WBC (Auto) 21-50 H (0-5) /hpf U Hyaline Cast (Auto) 3-5 H (0-2) /lpf U Epithel Cells (Auto) 6-10 H (0-2) /hpf Urine Bacteria (Auto) 1+ H (None Seen) Kristine species POSITIVE A (Negative) Bact Vag ARACELY Interpr POSITIVE A (Negative) PG Care Time/CCT Total # of Minutes Spent Total Time Spent with Patient: Total time spent is greater than 50% in coordination of care (as documented) at patient's floor/unit and/or counseling patient: Coding Level of Care Code 08557 SUB INP/OBS CARE 2/35MIN Diagnoses Accelerated hypertension I10 Lightheadedness R42 Virus not detected Z01.89 Iron deficiency anemia D50.9 Demand ischemia I24.89 Vaginal candidiasis B37.31
[2024-02-14] MEDS: CLINDAMYCIN PHOS 2% VAG 7 APPLN/40 GM TUBE PV SCH (14:44)
[2024-02-14 17:16] LABS: Mycoplasma Genitalium RNA Negative (Negative)
[2024-02-15 02:53] VITALS: RESP 16; O2SAT 97
[2024-02-15 06:36] LABS: Hematocrit (blood only) 26.5 % (37.0-47.0); Hemoglobin 7.5 g/dl (12.0-16.0); Mean Corpuscular Hgb Conc 28.3 g/dL (32.0-36.0); Mean Corpuscular Volume 67.1 fL (80.0-100.0); Mean Platelet Volume 9.5 fL (9.4-12.4); Platelet Count 319 K/uL (130-400); RDW Coefficient of Variation 17.7 % (11.5-14.5); Red Blood Count 3.95 M/uL (4.20-5.40); White Blood Count 10.18 K/ul (4.8-10.8)
[2024-02-15 07:51] VITALS: PULSE 95; TEMP 97.7
[2024-02-15] MEDS: TRIAMTERENE/HCTZ 37.5/25MG TAB PO SCH (09:34)
--- NOTE | 2024-02-15 10:49 | Discharge Summary ---
Date of Service February 15, 2024 Admission HPI Per Admitting Provider This is a 28-year-old female who presented to the ER with several complaints. She stated that about a week ago she started having some runny nose, nasal congestion, shortness of breath. She thought it was a viral illness and did not think much of it. However 2 days ago, she started feeling dizzy along with some ringing in the ears. She stated that the last time she was dizzy, she came to the ER and was found to have severe anemia (hemoglobin 5.9) and required blood transfusion. She assumed that her hemoglobin must be low again and so she came to the ER. Her hemoglobin was 7.8 today which is near her baseline. But her blood work was significant for mild leukocytosis at 12, mildly elevated troponin in the 20s and thus the ER physician wanted the patient to be admitted. She was also noted to be hypertensive. The patient never had any chest pain. Her EKG is negative. She denies any shortness of breath or cough. She is on room air. She says that she has been feeling dizzy when she moves too quickly. Sometimes moving her head from [id number]-vrjq too quickly will cause her to feel dizzy. She also has had a ringing sensation in her years associated with the dizziness. She tested negative for COVID, flu, RSV. Procalcitonin level negative. She has also been complaining of vaginal discharge. She was given a dose of fluconazole p.o. x 1 in the emergency room. Past medical history 1. Morbid obesity with a BMI of 50 2. Iron deficiency anemia, requiring hospitalization in April 2023. After extensive workup, anemia was thought to be likely due to menorrhagia 3. Migraine Admission Exam Per Admitting Provider General appearance: Awake, conversant, able to answer questions appropriately. AOx3. Morbidly obese Pupils: Equally reactive to light and accommodation Neck: No masses, no thyromegaly Respiration: Clear to auscultation bilaterally. Normal effort Cardiovascular: S1-S2/regular rate and rhythm. No murmur, rubs or gallop. No edema. Abdomen: Soft, nontender, nondistended. No hepatosplenomegaly Musculoskeletal: No clubbing, no cyanosis, normal range of motion Skin: No rashes, no nodules Neuro exam: Cranial nerves intact, sensation grossly intact Psychiatric: Patient has good judgment and insight. AOx3. Mood and affect appear normal Lymphatics: No cervical or axillary lymphadenopathy noted Principal Diagnosis Accelerated hypertension Benign positional vertigo Iron deficiency anemia Vaginal discharge due to vaginal candidiasis, bacterial vaginosis Discharge Exam General: Awake, conversant Heart: S1, S2/regular rate and rhythm, no murmur rubs or gallops Lungs: Clear to auscultation bilaterally. Normal effort Abdomen: Soft/nontender/nondistended. No hepatosplenomegaly Extremities: No clubbing/cyanosis. No edema Behavior: Appropriate, cooperative Discharge Data Allergies Allergy/AdvReac Type Severity Reaction Status Date / Time No Known Allergies AdvReac Unknown Verified 02/13/24 10:23 Consultations 02/13/24 08:13 ED Decision to Admit Stat Ordered Studies 02/13/24 05:52 CT head/brain wo con Stat Hospital Course (1) Accelerated hypertension: Blood pressure significantly high Patient tells me that her blood pressure has been high but she does not take any medications for it I started her on amlodipine 10 mg, Maxzide (triamterene 37.5/hydrochlorothiazide 25) She may need further medications added She has been advised to follow-up with her PCP. PCP needs to be established. Echocardiogram shows mild concentric LVH most likely due to longstanding uncontrolled hypertension (2) Lightheadedness: It is associated with ringing in the ears She describes a feeling of the room spinning around her when she moves her head from [id number]-[id number] Most likely benign positional vertigo She could also have some labyrinthitis due to recent viral illness Patient says that she does not feel dizzy today Hemoglobin stable in the sevens range today. I doubt that the anemia has anything to do with her lightheadedness (3) Virus not detected: Patient has been having nasal congestion, runny nose, shortness of breath for about a week. Flu, COVID, RSV negative Procalcitonin negative Chest x-ray showed a right base opacity but no clinical significance without any hypoxia, cough, fever Supportive treatment Patient received IV fluid in the emergency room. Held off on further fluid resuscitation because blood pressure is elevated. (4) Iron deficiency anemia: Patient's hemoglobin is 7.8 on admission which is her baseline Hemoglobin has stabilized in the sevens range The patient says that her dizziness is better when her anemia is worse. Most likely her dizziness is not related to her anemia (5) Demand ischemia: Very mildly elevated troponin Trending down Most likely demand ischemia due to uncontrolled hypertension, viral illness Echocardiogram showed no wall motion abnormalities EKG negative No chest pain (6) Vaginal candidiasis: Patient complains of vaginal discharge Was prescribed fluconazole in the emergency room Tested positive for bacterial vaginosis. Ordered clindamycin vaginally Plan Discharge to home today Total Time Total Time Spent Total Time Spent (In Minutes): 35 Discharge Plan Discharge Items Patient Disposition: Home - Self-Care Reason For Visit: DIZZINESS Discharge Diagnosis: Accelerated hypertension Benign positional vertigo Iron deficiency anemia Vaginal discharge due to vaginal candidiasis, bacterial vaginosis Condition on Discharge: Good Activity: Resume your previous activity Non-emergency contact: Primary Care Provider Call non-emergency contact if: you have any medication questions and your symptoms worsen Follow-up/Referrals: PCP,NO [Primary Care Provider] - Diet: Low Sodium (2gm) Addtl Attending Provider Instructions: Advised to follow-up with PCP in 1 week. You need a new PCP Pending Studies at Discharge: No Stand-Alone Forms: [facility], Work/School Release, Smoking Cessation Medications and DC Order Prescriptions: New clindamycin phosphate 2 % Cream 1 applic vaginal DAILY Qty: 40 0RF amlodipine [Norvasc] 5 mg Tablet 10 mg PO QAM 30 Days Qty: 60 0RF triamterene-hydrochlorothiazid 37.5-25 mg Tablet 1 tab PO QAM 30 Days Qty: 30 0RF Continued cholecalciferol (vitamin D3) 50 mcg (2,000 unit) Tablet 50 mcg PO DAILY famotidine 10 mg Tablet 10 mg PO DAILY Discharge Orders: Discharge Order (Routine); Ordered 02/15/24 Ordered By: Lizet Nuñez/Other Patient Handouts: Low-Salt Choices, High Blood Pressure Risk Factors, Blood Pressure Check Steps, High Blood Pressure Tx Admission Data Admit Date/Time: 02/13/24 10:30 Attending Provider: Lizet Moran Admit Provider: Lizet Moran Primary Care Provider: PCP,NO Other Providers: Rama Cat Other Interventions: Discharge Summary Assessment (RN) Last Done: 02/15/24 11:07
[2024-02-15 11:09] VITALS: BP 144/89
== END 2024-02-15 12:38 | disposition home or self-care (01) ==
LOC: 2N 05:16 → ED 05:16 → 2N 14:28